=== PATIENT | female | born 1940 | race Caucasian/White ===

== ENCOUNTER 2017-09-25 17:44 | Emergency (ER) | payer MEDICARE ==
[2017-09-25] MEDS ORDERED: NORMAL SALINE 1000 ML 1,000 ML IV ONE (18:15)
--- NOTE | 2017-09-25 18:18 | ER Document Report ---
ED Medical Screen (RME) - General Chief Complaint: High blood sugar, out of insulin Stated Complaint: BLOOD SUGAR ISSUES Time Seen by Provider: 09/25/17 18:15 Mode of Arrival: Wheelchair Information source: Patient TRAVEL OUTSIDE OF THE [place] IN LAST 30 DAYS: No - HPI Patient complains to provider of: elevated BS Onset: This afternoon - pt is an IDDM who ran out of her insulin earlier today but states her BS continues to rise. Her FSBS here is 267 - Related Data Allergies/Adverse Reactions: iodine [Iodine] Allergy (Verified 07/12/16 23:37) nortriptyline [Nortriptyline] Allergy (Verified 07/12/16 23:37) Penicillins Allergy (Verified 07/12/16 23:37) Past Medical History - Social History Chew tobacco use (# tins/day): No Frequency of alcohol use: None Drug Abuse: None - Past Medical History Cardiac Medical History: Reports: Hx Congestive Heart Failure, Hx Coronary Artery Disease, Hx Heart Attack, Hx Hypercholesterolemia, Hx Hypertension - HTN , pulmonary HTN Pulmonary Medical History: Reports: Hx COPD Denies: Hx Tuberculosis Endocrine Medical History: Reports: Hx Diabetes Mellitus Type 2 Renal/ Medical History: Denies: Hx Peritoneal Dialysis GI Medical History: Reports: Hx Hiatal Hernia Psychiatric Medical History: Denies: Hx Depression Past Surgical History: Reports: Hx Appendectomy, Hx Cardiac Surgery - bypass, Hx Cholecystectomy, Hx Coronary Artery Bypass Graft, Hx Tonsillectomy Physical Exam - Vital signs Vitals: Temp Pulse BP Pulse Ox 98.6 F 87 138/70 H 96 09/25/17 18:03 09/25/17 18:03 09/25/17 18:03 09/25/17 18:03 Course - Vital Signs Vital signs: Temp Pulse Resp BP Pulse Ox 98.6 F 87 138/70 H 96 09/25/17 18:03 09/25/17 18:03 09/25/17 18:03 09/25/17 18:03
[2017-09-25 18:39] LABS: ABSOLUTE BASOPHILS # (AUTO) 0.1 10^3/uL (0.0-0.2); ABSOLUTE EOSINOPHILS # (AUTO) 0.2 10^3/uL (0.0-0.6); ABSOLUTE LYMPHOCYTES (AUTO) 1.3 10^3/uL (0.5-4.7); ABSOLUTE MONOCYTES (AUTO) 0.5 10^3/uL (0.1-1.4); ABSOLUTE NEUT (AUTO) 8.7 10^3/uL (1.7-8.2); BASOPHILS % (AUTO) 0.6 % (0-2); EOSINOPHILS % (AUTO) 2.1 % (0-6); HEMATOCRIT 30.9 % (36.0-47.0); HEMOGLOBIN 9.9 g/dL (12.0-15.5); LYMPHOCYTES % (AUTO) 11.6 % (13-45); MEAN CORPUSCULAR HEMOGLOBIN 26.7 pg (27.0-33.4); MEAN CORPUSCULAR VOLUME 84 fl (80-97); MONOCYTES % (AUTO) 4.8 % (3-13); PLATELET COUNT 270 10^3/uL (150-450); RED CELL DISTRIBUTION WIDTH 15.6 % (11.5-14.0); SEGMENTED NEUTROPHILS % (AUTO) 80.9 % (42-78); TOTAL CELLS COUNTED % (AUTO) 100 %; WHITE BLOOD COUNT 10.8 10^3/uL (4.0-10.5)
[2017-09-25 18:56] LABS: ALANINE AMINOTRANSFERASE 28 U/L (9-52); ALKALINE PHOSPHATASE 150 U/L (38-126); ANION GAP 9 (5-19); ASPARTATE AMINO TRANSFERASE 33 U/L (14-36); BILIRUBIN,DIRECT 0.3 mg/dL (0.0-0.4); BILIRUBIN,TOTAL 0.5 mg/dL (0.2-1.3); BLOOD UREA NITROGEN 20 mg/dL (7-20); CALCIUM 9.5 mg/dL (8.4-10.2); CARBON DIOXIDE 37 mmol/L (22-30); CHLORIDE 94 mmol/L (98-107); GLUCOSE 254 mg/dL (75-110); POTASSIUM 4.8 mmol/L (3.6-5.0); SODIUM 139.9 mmol/L (137-145); TOTAL PROTEIN 7.3 g/dL (6.3-8.2)
[2017-09-25 20:41] VITALS: BP 147/71
--- NOTE | 2017-11-19 07:09 | ER Document Report ---
ED Blood Sugar Problem - General Chief Complaint: High blood sugar, out of insulin Stated Complaint: BLOOD SUGAR ISSUES Time Seen by Provider: 09/25/17 18:15 Mode of Arrival: Wheelchair Information source: Patient TRAVEL OUTSIDE OF THE [place] IN LAST 30 DAYS: No - HPI Patient complains to provider of: elevated Blood sugar Onset: This morning - pt states she ran out of her insulin and has had elevated Blood sugars - Related Data Allergies/Adverse Reactions: iodine [Iodine] Allergy (Verified 07/12/16 23:37) nortriptyline [Nortriptyline] Allergy (Verified 07/12/16 23:37) Penicillins Allergy (Verified 07/12/16 23:37) Past Medical History - General Information source: Patient - Social History Smoking Status: Never Smoker Chew tobacco use (# tins/day): No Frequency of alcohol use: None Drug Abuse: None Family History: Hypertension Patient has suicidal ideation: No Patient has homicidal ideation: No - Past Medical History Cardiac Medical History: Reports: Hx Congestive Heart Failure, Hx Coronary Artery Disease, Hx Heart Attack, Hx Hypercholesterolemia, Hx Hypertension - HTN , pulmonary HTN Pulmonary Medical History: Reports: Hx COPD Denies: Hx Tuberculosis Endocrine Medical History: Reports: Hx Diabetes Mellitus Type 2 Renal/ Medical History: Denies: Hx Peritoneal Dialysis GI Medical History: Reports: Hx Hiatal Hernia Psychiatric Medical History: Denies: Hx Depression Past Surgical History: Reports: Hx Appendectomy, Hx Cardiac Surgery - bypass, Hx Cholecystectomy, Hx Coronary Artery Bypass Graft, Hx Tonsillectomy - Immunizations Hx Pneumococcal Vaccination: 06/24/14 Review of Systems - Review of Systems Constitutional: No symptoms reported EENT: No symptoms reported Cardiovascular: No symptoms reported Respiratory: No symptoms reported Gastrointestinal: No symptoms reported Musculoskeletal: No symptoms reported -: Yes All other systems reviewed and negative Physical Exam - Vital signs Vitals: Temp Pulse BP Pulse Ox 98.6 F 87 138/70 H 96 09/25/17 18:03 09/25/17 18:03 09/25/17 18:03 09/25/17 18:03 - General General appearance: Appears well In distress: None - Respiratory Respiratory status: No respiratory distress Breath sounds: Normal - Cardiovascular Rhythm: Regular Heart sounds: Normal auscultation - Abdominal Inspection: Normal Bowel sounds: Normal Tenderness: Nontender Course - Re-evaluation Re-evalutation: 11/19/17 07:08 pt. felt better at time of d/c -- FSBS 200 -- expressed desire to go home - Vital Signs Vital signs: Temp Pulse Resp BP Pulse Ox 100.0 F 87 16 147/71 H 98 09/25/17 20:35 09/25/17 20:35 09/25/17 20:35 09/25/17 20:35 09/25/17 20:35 - Laboratory Result Diagrams: 09/25/17 18:30 09/25/17 18:30 Laboratory results interpreted by me: 09/25/17 09/25/17 09/25/17 18:17 18:30 18:30 WBC 10.8 H RBC 3.70 L Hgb 9.9 L Hct 30.9 L MCH 26.7 L RDW 15.6 H Seg Neutrophils % 80.9 H Lymphocytes % 11.6 L Absolute Neutrophils 8.7 H Chloride 94 L Carbon Dioxide 37 H Glucose 254 H POC Glucose 267 H Alkaline Phosphatase 150 H Discharge - Discharge Clinical Impression: Hyperglycemia Condition: Stable Disposition: HOME, SELF-CARE Additional Instructions: rest, take meds as prescribed, return if worse Referrals: SHAR ALAMO MD [ACTIVE STAFF] - Follow up as needed
== END 2017-09-25 20:38 | disposition home or self-care (01) ==
LOC: ER 17:44
DX: E11.65 Type 2 diabetes mellitus with hyperglycemia (principal); Z79.4 Long term (current) use of insulin; Z88.0 Allergy status to penicillin; I50.9 Heart failure, unspecified; I25.10 Atherosclerotic heart disease of native coronary artery without angina pectoris; I25.2 Old myocardial infarction; E78.00 Pure hypercholesterolemia, unspecified; I11.0 Hypertensive heart disease with heart failure; J44.9 Chronic obstructive pulmonary disease, unspecified; Z95.1 Presence of aortocoronary bypass graft; Z90.49 Acquired absence of other specified parts of digestive tract
CPT/HCPCS: 36415; 80053; 82962; 85025; 99283

== ENCOUNTER 2018-03-24 15:48 | Emergency (ER) | payer MEDICARE ==
--- NOTE | 2018-03-24 16:16 | ER Document Report ---
ED Medical Screen (RME) - General Chief Complaint: Pedal Edema Stated Complaint: LEG SWELLING Time Seen by Provider: 03/24/18 16:15 Mode of Arrival: Wheelchair Information source: Patient, Relative Notes: 77-year-old female history of congestive heart failure who is on 2 L of nasal cannula at all times at home presents with complaints of shortness of breath and lower extremity edema patient is on 40 mg of Lasix daily I have greeted and performed a rapid initial assessment of this patient. A comprehensive ED assessment and evaluation of the patient, analysis of test results and completion of the medical decision making process will be conducted by additional ED providers. PHYSICAL EXAMINATION: GENERAL: Well-appearing, well-nourished and in no acute distress. Patient satting 90% on room air will place her on oxygen HEAD: Atraumatic, normocephalic. EYES: Pupils equal round extraocular movements intact, conjunctiva are normal. ENT: Nares patent NECK: Normal range of motion LUNGS: No respiratory distress Musculoskeletal: +2 pitting edema bilateral lower extremities NEUROLOGICAL: Normal speech, normal gait. PSYCH: Normal mood, normal affect. SKIN: Warm, Dry, normal turgor, no rashes or lesions noted. TRAVEL OUTSIDE OF THE [place] IN LAST 30 DAYS: No COUNTRY TRAVELED TO/FROM: [facility] - Related Data Allergies/Adverse Reactions: iodine [Iodine] Allergy (Verified 03/24/18 15:53) nortriptyline [Nortriptyline] Allergy (Verified 03/24/18 15:53) Penicillins Allergy (Verified 03/24/18 15:53) Past Medical History - Past Medical History Cardiac Medical History: Reports: Hx Congestive Heart Failure, Hx Coronary Artery Disease, Hx Heart Attack, Hx Hypercholesterolemia, Hx Hypertension - HTN , pulmonary HTN Pulmonary Medical History: Reports: Hx COPD Denies: Hx Tuberculosis Endocrine Medical History: Reports: Hx Diabetes Mellitus Type 2 Renal/ Medical History: Denies: Hx Peritoneal Dialysis GI Medical History: Reports: Hx Hiatal Hernia Psychiatric Medical History: Denies: Hx Depression Past Surgical History: Reports: Hx Appendectomy, Hx Cardiac Surgery - bypass, Hx Cholecystectomy, Hx Coronary Artery Bypass Graft, Hx Tonsillectomy Physical Exam - Vital signs Vitals: Temp Pulse Resp BP Pulse Ox 98.8 F 92 20 153/66 H 90 L 03/24/18 16:01 03/24/18 16:01 03/24/18 16:01 03/24/18 16:01 03/24/18 16:01 Course - Vital Signs Vital signs: Temp Pulse Resp BP Pulse Ox 98.8 F 92 20 153/66 H 90 L 03/24/18 16:01 03/24/18 16:01 03/24/18 16:01 03/24/18 16:01 03/24/18 16:01 Doctor's Discharge - Discharge Referrals: HIMA LIU NP [Primary Care Provider] - Follow up as needed
[2018-03-24] MEDS ORDERED: HYDROCODONE/ACETAMINOPHEN 5-325 MG TABLET PO ONE (17:09)
--- NOTE | 2018-03-24 17:24 | RADIOLOGY REPORT (SQ) ---
EXAM DESCRIPTION: CHEST SINGLE VIEW COMPLETED DATE/TIME: 03/24/2018 5:11 pm REASON FOR STUDY: dyspnea COMPARISON: 06/24/2016 EXAM PARAMETERS: NUMBER OF VIEWS: One view. TECHNIQUE: Single frontal radiographic view of the chest acquired. RADIATION DOSE: NA LIMITATIONS: None. FINDINGS: LUNGS AND PLEURA: No opacities, masses or pneumothorax. No pleural effusion. MEDIASTINUM AND HILAR STRUCTURES: No masses. Contour normal. HEART AND VASCULAR STRUCTURES: Heart normal in size. Normal vasculature. BONES: No acute findings. HARDWARE: Sternotomy wires. OTHER: No other significant finding. IMPRESSION: NO ACUTE RADIOGRAPHIC FINDING IN THE CHEST. TECHNICAL DOCUMENTATION: JOB ID: [id number] [employer]- All Rights Reserved Reading location - IP/workstation name: [email or web address]
--- NOTE | 2018-03-24 17:37 | ER Document Report ---
ED General - General Chief Complaint: Pedal Edema Stated Complaint: LEG SWELLING Time Seen by Provider: 03/24/18 16:15 Mode of Arrival: Wheelchair TRAVEL OUTSIDE OF THE [place] IN LAST 30 DAYS: No COUNTRY TRAVELED TO/FROM: [facility] Notes: Patient is a 77-year-old female history of COPD, CAD, CHF, renal failure, atrial fibrillation and is oxygen dependent at home 2 L consistently presents the emergency department with report of increasing lower extremity edema for the last 3-4 days. The patient states she has dyspnea on exertion which is unchanged. The patient denies any chest pain or fever or abdominal pain. She describes the leg swelling has been chronic but seems worse for the low past 3 days. She states she has had inadequate pain relief related to tramadol, but [employer] has worked for her in the past when she was in [place]. Patient reports her only recent other medication change was at she was increased on her Lyrica dosage. She has been on Eliquis for the last 5 months related to the atrial fibrillation. She also takes aspirin and Lasix 40 mg daily. Patient is extremely inactive and usually states she is unable to move around related to her chronic arthralgias. The patient gets around minimally with a walker at home and does not elevate her feet or move her legs much. - Related Data Allergies/Adverse Reactions: iodine [Iodine] Allergy (Verified 03/24/18 15:53) nortriptyline [Nortriptyline] Allergy (Verified 03/24/18 15:53) Penicillins Allergy (Verified 03/24/18 15:53) Past Medical History - General Information source: Patient, Relative - Social History Smoking Status: Former Smoker Frequency of alcohol use: None Drug Abuse: None Lives with: Family, Spouse/Significant other Family History: Hypertension Patient has suicidal ideation: No Patient has homicidal ideation: No - Past Medical History Cardiac Medical History: Reports: Hx Congestive Heart Failure, Hx Coronary Artery Disease, Hx Heart Attack, Hx Hypercholesterolemia, Hx Hypertension - HTN , pulmonary HTN Pulmonary Medical History: Reports: Hx COPD Denies: Hx Tuberculosis Endocrine Medical History: Reports: Hx Diabetes Mellitus Type 2 Renal/ Medical History: Denies: Hx Peritoneal Dialysis GI Medical History: Reports: Hx Hiatal Hernia Psychiatric Medical History: Denies: Hx Depression Past Surgical History: Reports: Hx Appendectomy, Hx Cardiac Surgery - bypass, Hx Cholecystectomy, Hx Coronary Artery Bypass Graft, Hx Tonsillectomy - Immunizations Hx Pneumococcal Vaccination: 06/24/14 Review of Systems - Review of Systems Notes: REVIEW OF SYSTEMS: CONSTITUTIONAL : Denies fever, chills, or sweats. Denies recent illness. EENT: Denies eye, ear, throat, or mouth pain or symptoms. Denies nasal or sinus congestion or discharge. Denies throat, tongue, or mouth swelling or difficulty swallowing. CARDIOVASCULAR: Denies chest pain. Denies palpitations or racing or irregular heart beat. RESPIRATORY: Denies cough, cold, or chest congestion. Denies wheezing. Reports chronic dyspnea with dyspnea on exertion. Patient's had orthopnea she describes for several years which is unchanged. GASTROINTESTINAL: Denies abdominal pain or distention. Denies nausea, vomiting , or diarrhea. Denies blood in vomitus, stools, or per rectum. Denies black, tarry stools. Denies constipation. GENITOURINARY: Denies difficulty urinating, painful urination, burning, frequency, blood in urine, or discharge. FEMALE GENITOURINARY: Denies vaginal bleeding, heavy or abnormal periods, irregular periods. Denies vaginal discharge or odor. MUSCULOSKELETAL: Denies back or neck pain or stiffness. Denies joint pain or swelling. SKIN: Denies rash, lesions or sores. HEMATOLOGIC : Denies easy bruising or bleeding. LYMPHATIC: Denies swollen, enlarged glands. NEUROLOGICAL: Denies confusion or altered mental status. Denies passing out or loss of consciousness. Denies dizziness or lightheadedness. Denies headache. Denies weakness or paralysis or loss of use of either side. Denies problems with gait or speech. Denies sensory loss, numbness, or tingling. Denies seizures. PSYCHIATRIC: Denies anxiety or stress. Denies depression, suicidal ideation, or homicidal ideation. ALL OTHER SYSTEMS REVIEWED AND NEGATIVE. Dictation was performed using [employer] voice recognition software Physical Exam - Vital signs Vitals: Temp Pulse Resp BP Pulse Ox 98.8 F 92 20 153/66 H 90 L 03/24/18 16:01 03/24/18 16:03/24/18 16:01 03/24/18 16:03/24/18 16:01 - Notes Notes: PHYSICAL EXAMINATION: GENERAL: Well-appearing, well-nourished and in no acute distress. HEAD: Atraumatic, normocephalic. EYES: Pupils equal round and reactive to light, extraocular movements intact, conjunctiva are normal. ENT: Nares patent, oropharynx clear without exudates. Moist mucous membranes. NECK: Normal range of motion, supple without lymphadenopathy. No JVD LUNGS: Breath sounds clear to auscultation bilaterally and equal. No wheezes rales or rhonchi. HEART: Regular rate and rhythm with 1/6 HELADIO over apex. ABDOMEN: Soft, nontender, nondistended abdomen. No guarding, no rebound. No masses appreciated. Obese. Female : deferred Musculoskeletal: Normal range of motion. No cyanosis. Patient has diffuse arthralgias which are unchanged by her report. Patient has 2+ bilateral lower extremity edema. Negative Homans. No palpable cord. She has a surgical scar from vascular surgery right lower extremity and there may be slightly worse swelling on the right but no obvious evidence for cellulitis. Good distal pulses. No proximal erythema or adenopathy. NEUROLOGICAL: Cranial nerves grossly intact. Normal speech, normal gait. Normal sensory, motor exams PSYCH: Normal mood, normal affect. SKIN: Warm, Dry, normal turgor, no rashes or lesions noted. Course - Re-evaluation Re-evalutation: 03/24/18 20:38 Discussion was undertaken with the patient and her related to the need for regular exercise and exertion and leg elevation. The patient has support stockings at home, but she does not use them regularly. The patient was mainly focusing upon having something stronger for her chronic arthralgia pain. I stated she needed to follow-up with her regular practitioner for any long-term prescription for this, and I discussed at length with the patient that taking narcotics or other analgesias can hasten dementia and other side effects. Patient's MCV is somewhat low, and we will add in low-dose iron therapy. The patient's hemoglobin of 9 is similar to 7 months ago where it was 9.9. No suggestion for significant blood loss. No evidence for CHF or renal insufficiency. Patient has long-standing oxygen dependent COPD, and there is no evidence for hypoxia beyond her baseline. Patient is anticoagulated currently with Eliquis, so there is no concern for PE or DVT at the current time. 03/24/18 20:39 - Vital Signs Vital signs: Temp Pulse Resp BP Pulse Ox 98.8 F 92 20 153/66 H 90 L 03/24/18 16:01 03/24/18 16:01 03/24/18 16:01 03/24/18 16:01 03/24/18 16:01 - Laboratory Result Diagrams: 03/24/18 18:14 03/24/18 18:14 Laboratory results interpreted by me: 03/24/18 03/24/18 03/24/18 16:11 18:14 18:14 Hgb 9.0 L Hct 29.1 L MCV 75 L MCH 23.1 L MCHC 31.1 L RDW 17.6 H Chloride 93 L Carbon Dioxide 37 H BUN 29 H Glucose 311 H Alkaline Phosphatase 172 H Urine Glucose (UA) >=500 H - EKG Interpretation by Or EKG shows normal: Sinus rhythm Additional EKG results interpreted by me: 03/24/18 17:37 EKG as interpreted by wy showed normal sinus rhythm heart rate of 84. There is no gross evidence for acute RI or ischemia. There is first-degree AV block. There is right bundle branch block. There is no significant change from previous EKG reviewed from 06/22/16 Discharge - Discharge Clinical Impression: Anemia Qualifiers: Anemia type: unspecified type Qualified Code(s): D64.9 - Anemia, unspecified Arthralgia Qualifiers: Joint pain location: unspecified Qualified Code(s): M25.50 - Pain in unspecified joint Edema Qualifiers: Edema type: unspecified Qualified Code(s): R60.9 - Edema, unspecified Condition: Stable Disposition: HOME, SELF-CARE Instructions: Arthralgia ([facility]), Dependent Edema ([facility]), Anemia ([facility]) Additional Instructions: Elevate your legs as needed for swelling. Use support hose during the day to help limit swelling. We will start you on low-dose iron for anemia. Follow-up with your regular practitioner regarding iron studies and further evaluation. Prescriptions: Hydrocodone/Acetaminophen [[place] 5-325 Tablet] 1 each PO Q4HP PRN #20 tablet PRN Reason: Ferrous Sulfate [Feosol] 325 mg PO DAILY #60 tablet Referrals: HIMA LIU NP [Primary Care Provider] - Follow up as needed
[2018-03-24 18:33] LABS: ABSOLUTE BASOPHILS # (AUTO) 0.1 10^3/uL (0.0-0.2); ABSOLUTE EOSINOPHILS # (AUTO) 0.3 10^3/uL (0.0-0.6); ABSOLUTE LYMPHOCYTES (AUTO) 1.5 10^3/uL (0.5-4.7); ABSOLUTE MONOCYTES (AUTO) 0.6 10^3/uL (0.1-1.4); ABSOLUTE NEUT (AUTO) 6.8 10^3/uL (1.7-8.2); EOSINOPHILS % (AUTO) 3.2 % (0-6); HEMATOCRIT 29.1 % (36.0-47.0); LYMPHOCYTES % (AUTO) 16.3 % (13-45); MEAN CORPUSCULAR HEMOGLOBIN 23.1 pg (27.0-33.4); MEAN CORPUSCULAR HGB CONC 31.1 g/dL (32.0-36.0); MEAN CORPUSCULAR VOLUME 75 fl (80-97); PLATELET COUNT 239 10^3/uL (150-450); RED CELL DISTRIBUTION WIDTH 17.6 % (11.5-14.0); SEGMENTED NEUTROPHILS % (AUTO) 73.5 % (42-78); TOTAL CELLS COUNTED % (AUTO) 100 %; WHITE BLOOD COUNT 9.3 10^3/uL (4.0-10.5)
[2018-03-24 18:59] LABS: TROPONIN I 0.016 ng/mL
[2018-03-24 19:10] LABS: ALANINE AMINOTRANSFERASE 25 U/L (9-52); ALBUMIN 3.8 g/dL (3.5-5.0); ALKALINE PHOSPHATASE 172 U/L (38-126); ANION GAP 13 (5-19); ASPARTATE AMINO TRANSFERASE 35 U/L (14-36); BILIRUBIN,DIRECT 0.2 mg/dL (0.0-0.4); BILIRUBIN,TOTAL 0.2 mg/dL (0.2-1.3); BLOOD UREA NITROGEN 29 mg/dL (7-20); CALCIUM 9.6 mg/dL (8.4-10.2); CARBON DIOXIDE 37 mmol/L (22-30); CHLORIDE 93 mmol/L (98-107); CREATINE KINASE 35 U/L (30-135); GLUCOSE 311 mg/dL (75-110); POTASSIUM 4.9 mmol/L (3.6-5.0); TOTAL PROTEIN 7.6 g/dL (6.3-8.2)
[2018-03-24 19:31] LABS: APPEARANCE,URINE CLEAR; BILIRUBIN,URINE NEGATIVE (NEGATIVE); COLOR,URINE STRAW; GLUCOSE, URINE >=500 mg/dL (NEGATIVE); KETONES,URINE NEGATIVE (NEGATIVE); LEUKOCYTE ESTERASE,URINE NEGATIVE (NEGATIVE); NITRITE,URINE NEGATIVE (NEGATIVE); PROTEIN,URINE NEGATIVE (NEGATIVE); URINE SPECIFIC GRAVITY 1.007; UROBILINOGEN,URINE NEGATIVE mg/dL (<2.0)
--- NOTE | 2018-03-24 20:57 | EKG REPORT ---
SEVERITY:- ABNORMAL ECG - SINUS OR ECTOPIC ATRIAL RHYTHM FIRST DEGREE AV BLOCK RIGHT BUNDLE BRANCH BLOCK PROBABLE INFERIOR INFARCT, AGE INDETERMINATE BORDERLINE T WAVE ABNORMALITIES : Confirmed by: Kaley Jain 24-Mar-2018 20:56:40
[2018-03-24 21:15] VITALS: BP 139/58
== END 2018-03-24 21:15 | disposition home or self-care (01) ==
LOC: ER 15:48
DX: D64.9 Anemia, unspecified (principal); M25.50 Pain in unspecified joint; R60.9 Edema, unspecified; J44.9 Chronic obstructive pulmonary disease, unspecified; I25.10 Atherosclerotic heart disease of native coronary artery without angina pectoris; I50.9 Heart failure, unspecified; N19 Unspecified kidney failure; I48.91 Unspecified atrial fibrillation; Z99.81 Dependence on supplemental oxygen; R06.00 Dyspnea, unspecified; Z79.899 Other long term (current) drug therapy; Z79.01 Long term (current) use of anticoagulants; Z79.82 Long term (current) use of aspirin; Z87.891 Personal history of nicotine dependence; I25.2 Old myocardial infarction; I10 Essential (primary) hypertension; E11.9 Type 2 diabetes mellitus without complications
CPT/HCPCS: 93005; 99284; 36415; 87040; 82553; 82550; 85025; 80053; 81001; 84484; 83880; 71045; 93010; A9270

== ENCOUNTER 2018-03-26 23:18 | Emergency (ER) | payer MEDICARE ==
--- NOTE | 2018-03-26 23:48 | ER Document Report ---
ED General - General Chief Complaint: Altered Mental Status Stated Complaint: WEAKNESS Time Seen by Provider: 03/26/18 23:30 Notes: Patient is a 77 year female who presents to the ER with complaint of a fall. She says she was going to the bathroom and fell backwards did hit her head. She says she only has a mild headache. She has some back pain but says is chronic and unchanged from her baseline. She says she has must be seen a doctor about possibly get injections into her back. She does take Xarelto. She denies any chest pain. No shortness of breath. No fevers. She said that she has been lumbar more week and shaky since starting the new medication as prescribed when she was here 2 days ago. She was prescribed hydrocodone. Also noticed that the patient's previous chart says that she has been 2 L of oxygen. When she is sitting in bed her oxygen saturations anywhere from 86-92% on room air. I asked her if she has been wearing her oxygen she says that the oxygen nasal cannula sometimes itches her nose and therefore she does not wear it often. She denies any fevers. No vomiting. Some mentions that she has been having some urinary frequency which she feels like she frequently has to use the bathroom but is unable to. 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 TRAVEL OUTSIDE OF THE [place] IN LAST 30 DAYS: No COUNTRY TRAVELED TO/FROM: [facility] - Related Data Allergies/Adverse Reactions: iodine [Iodine] Allergy (Verified 03/24/18 15:53) nortriptyline [Nortriptyline] Allergy (Verified 03/24/18 15:53) Penicillins Allergy (Verified 03/24/18 15:53) Past Medical History - Social History Smoking Status: Unknown if Ever Smoked Frequency of alcohol use: None Drug Abuse: None Family History: Hypertension - Past Medical History Cardiac Medical History: Reports: Hx Congestive Heart Failure, Hx Coronary Artery Disease, Hx Heart Attack, Hx Hypercholesterolemia, Hx Hypertension - HTN , pulmonary HTN Pulmonary Medical History: Reports: Hx COPD Denies: Hx Tuberculosis Endocrine Medical History: Reports: Hx Diabetes Mellitus Type 2 Renal/ Medical History: Denies: Hx Peritoneal Dialysis GI Medical History: Reports: Hx Hiatal Hernia Psychiatric Medical History: Denies: Hx Depression Past Surgical History: Reports: Hx Appendectomy, Hx Cardiac Surgery - bypass, Hx Cholecystectomy, Hx Coronary Artery Bypass Graft, Hx Tonsillectomy - Immunizations Hx Pneumococcal Vaccination: 06/24/14 Review of Systems - Review of Systems Notes: My Normal Review Basic REVIEW OF SYSTEMS: CONSTITUTIONAL : Denies fever, chills, or sweats. Denies recent illness. Has felt a little bit more weak than usual. EENT: Denies eye, ear, throat, or mouth pain or symptoms. Denies nasal or sinus congestion. CARDIOVASCULAR: Denies chest pain. RESPIRATORY: Denies cough, cold, or chest congestion. Denies shortness of breath, difficulty breathing, or wheezing. GASTROINTESTINAL: Denies abdominal pain. Denies nausea, vomiting, or diarrhea. GENITOURINARY: Urinary frequency FEMALE GENITOURINARY: Denies vaginal bleeding, abnormal or irregular periods. MUSCULOSKELETAL: Denies neck or back pain or joint pain or swelling. SKIN: Denies rash or skin lesions. HEMATOLOGIC : On Eliquis. NEUROLOGICAL: Denies altered mental status or loss of consciousness. Mild headache. Denies weakness or paralysis or loss of use of either side. Denies problems with gait or speech. Denies sensory or motor loss. ALL OTHER SYSTEMS REVIEWED AND NEGATIVE. Physical Exam - Vital signs Vitals: Temp Pulse Resp BP Pulse Ox 98.4 F 88 17 130/100 H 96 03/26/18 23:30 03/26/18 23:30 03/26/18 23:30 03/26/18 23:30 03/26/18 23:30 - Notes Notes: General Appearance: Well nourished, alert, cooperative, no acute distress, no obvious discomfort. Well-appearing. Vitals: reviewed, See vital signs table. Head: Some tenderness to palpation of the occipital portion of the head. No obvious hematoma or swelling. Eyes: PERRL, EOMI, Conjuctiva clear Mouth: No decreasd moisture Throat: No tonsillar inflammation, No airway obstruction, No lymphadenopathy Neck: Supple, no neck tenderness, Lungs: No wheezing, No rales, No rhonci, No accessory muscle use, good air exchange bilaterally. Heart: Normal rate, Regular rythm, No murmur, no rub Abdomen: Normal BS, soft, No rigidity, No abdominal tenderness, No guarding, no rebound, no abdominal masses, no organomegaly Rectal: Brown stool without gross blood. Back: Some pain to palpation over thoracic spine which patient says is chronic and unchanged from her baseline. No step-offs or deformities. No step-offs or deformities of lumbar spine. No pain to palpation of lumbar spine. Extremities: , good pulses in all extremities, no swelling or tenderness in the extremities, 1+ bilateral lower extremity edema. Skin: warm, dry, appropriate color, candidal rash underneath both breasts. Neuro: speech clear, oriented x 3, normal affect, responds appropriately to questions. He understood 2 through 12 are intact. Patient moves all extremities without difficulty. Distal sensation intact. Course - Re-evaluation Re-evalutation: 03/27/18 05:13 I suspect the patient's weakness is multifactorial. She is felt weaker since starting the Rhodell. I will have her stop this. Also she admitted to me that she does not wear her oxygen very often and when at rest on room air she does frequently become hypoxic and therefore I informed her that it is extremely important to check she wears her oxygen. She had a chest x-ray just 2 days ago she has not had any fevers or leukocytosis and therefore I do not see a need to repeat chest x-ray. I did scan her head but she did fall on her head and does take a blood thinner. CT scan of her head was normal. Patient is actually for the most part upbeat and well appearing. She did have a slight decrease in hemoglobin from last time she was here. This could be related to her blood draws. I still went ahead and obtain a stool guaiac which was negative. Her urine did not show any evidence of blood. She has no evidence of bleeding on exam at this time. Patient does not appear to be very compliant with her care. Patient's helps care for her. I informed her that she needs to be compliant with all her medications. She does have significant dental type rash in either breast. She actually is prescribed a cream for this but she says that she just does not take it sometimes even though she admits that it works well when she does take it. Informed her that she should take all her medications as prescribed except for the Rhodell which she should stop taking. Informed her that she really does wear oxygen. Encouraged her follow-up closely with her primary care doctor for reevaluation and to have her hemoglobin rechecked this week. Patient to return to ER if she has fevers or feels worse in any way. Patient agrees with plan and will be discharged home. Dictation of this chart was performed using voice recognition software; therefore, there may be some unintended grammatical errors. - Vital Signs Vital signs: Temp Pulse Resp BP Pulse Ox 98.4 F 88 18 111/48 L 97 03/26/18 23:30 03/26/18 23:30 03/27/18 04:01 03/27/18 04:01 03/27/18 04:01 - Laboratory Result Diagrams: 03/27/18 01:48 03/27/18 01:48 Laboratory results interpreted by me: 03/27/18 03/27/18 03/27/18 01:14 01:48 01:48 RBC 3.57 L Hgb 8.3 L Hct 26.7 L MCV 75 L MCH 23.1 L MCHC 30.9 L RDW 17.5 H Carbon Dioxide 37 H BUN 45 H Est GFR ( Amer) 55 L Est GFR (Non-Af Amer) 45 L Glucose 249 H Urine Glucose (UA) >=500 H - EKG Interpretation by Me Additional EKG results interpreted by me: 03/27/18 00:26 EKG is reviewed and interpreted by me. EKG shows what appears to be sinus rhythm with occasional ectopic beat or artifact. Rate is approximately [address] segment elevation or depression. No concerning T-wave inversions. DE interval appears to be slightly prolonged. QRS duration QTc intervals are within normal range. Old EKG for comparison is from March 24, 2018. Discharge - Discharge Clinical Impression: Generalized weakness Anemia Qualifiers: Anemia type: unspecified type Qualified Code(s): D64.9 - Anemia, unspecified Condition: Good Disposition: HOME, SELF-CARE Additional Instructions: Please wear your oxygen at all times. Please start using your cream that you were prescribed for under your breast. please stop taking the pain medicine ( Rhodell) that you were prescribed here 2 days ago. Follow up with your doctor on for reevaluation and recheck of your hemoglobin. Return to the ER if you have fevers or are feeling worse. Please do not attempt to walk without your walker. Referrals: HIMA LIU NP [Primary Care Provider] - 03/30/18
[2018-03-27] MEDS ORDERED: INSULIN REG, HUMAN 100 UNIT/ML 3 ML VIAL (PYX) SUBCUT ONE (00:17)
--- NOTE | 2018-03-27 01:16 | RADIOLOGY REPORT (SQ) ---
EXAM DESCRIPTION: CT HEAD WITHOUT IV CONTRAST COMPLETED DATE/TME: 03/26/2018 23:43 CLINICAL HISTORY: 77 years, Female, AMS, weakness, fall COMPARISON: 06/20/2016 TECHNIQUE: 111 Images stored on PACS. All CT scanners at this facility use dose modulation, iterative reconstruction, and/or weight based dosing when appropriate to reduce radiation dose to as low as reasonably achievable (ALARA). [facility]: Dose Right [facility]: CareDose [facility]: Dose Right [facility]: Teradose 4D [facility]: [employer] LIMITATIONS: None. FINDINGS: Ventricles and sulci are prominent consistent with atrophy. There is periventricular white matter disease and microvascular ischemic change similar to the previous. There is no evidence of midline shift or mass effect. No evidence of acute intracranial hemorrhage. Paranasal sinuses are free from significant mucosal thickening or fluid. No calvarial fracture. IMPRESSION: Atrophy with periventricular white matter disease and microvascular ischemic changes No evidence of acute process TECHNICAL DOCUMENTATION: Quality ID # [id number]: Final reports with documentation of one or more dose reduction techniques (e.g., Automated exposure control, adjustment of the mA and/or kV according to patient size, use of iterative reconstruction technique) 2010 [email or web address]- All Rights Reserved
[2018-03-27 01:29] LABS: APPEARANCE,URINE CLEAR; BILIRUBIN,URINE NEGATIVE (NEGATIVE); COLOR,URINE YELLOW; GLUCOSE, URINE >=500 mg/dL (NEGATIVE); KETONES,URINE NEGATIVE (NEGATIVE); LEUKOCYTE ESTERASE,URINE NEGATIVE (NEGATIVE); NITRITE,URINE NEGATIVE (NEGATIVE); PROTEIN,URINE NEGATIVE (NEGATIVE); URINE SPECIFIC GRAVITY 1.014; UROBILINOGEN,URINE NEGATIVE mg/dL (<2.0)
[2018-03-27 01:57] LABS: ABSOLUTE BASOPHILS # (AUTO) 0.1 10^3/uL (0.0-0.2); ABSOLUTE EOSINOPHILS # (AUTO) 0.3 10^3/uL (0.0-0.6); ABSOLUTE LYMPHOCYTES (AUTO) 1.7 10^3/uL (0.5-4.7); ABSOLUTE MONOCYTES (AUTO) 0.7 10^3/uL (0.1-1.4); ABSOLUTE NEUT (AUTO) 7.1 10^3/uL (1.7-8.2); BASOPHILS % (AUTO) 0.8 % (0-2); EOSINOPHILS % (AUTO) 3.2 % (0-6); HEMATOCRIT 26.7 % (36.0-47.0); HEMOGLOBIN 8.3 g/dL (12.0-15.5); LYMPHOCYTES % (AUTO) 17.3 % (13-45); MEAN CORPUSCULAR HEMOGLOBIN 23.1 pg (27.0-33.4); MEAN CORPUSCULAR HGB CONC 30.9 g/dL (32.0-36.0); MEAN CORPUSCULAR VOLUME 75 fl (80-97); PLATELET COUNT 212 10^3/uL (150-450); RED BLOOD COUNT 3.57 10^6/uL (3.72-5.28); RED CELL DISTRIBUTION WIDTH 17.5 % (11.5-14.0); SEGMENTED NEUTROPHILS % (AUTO) 71.7 % (42-78); TOTAL CELLS COUNTED % (AUTO) 100 %; WHITE BLOOD COUNT 9.9 10^3/uL (4.0-10.5)
[2018-03-27 02:21] LABS: ANION GAP 7 (5-19); BLOOD UREA NITROGEN 45 mg/dL (7-20); CALCIUM 8.8 mg/dL (8.4-10.2); CARBON DIOXIDE 37 mmol/L (22-30); CHLORIDE 99 mmol/L (98-107); GLUCOSE 249 mg/dL (75-110); SODIUM 143.2 mmol/L (137-145)
[2018-03-27 06:10] VITALS: BP 105/82
--- NOTE | 2018-03-27 07:25 | EKG REPORT ---
SEVERITY:- ABNORMAL ECG - A-FLUTTER W/ PREDOM 3:1 AV BLOCK, A-RATE 234 BORDERLINE T ABNORMALITIES, INFERIOR LEADS : Confirmed by: Kelly Bhardwaj MD 27-Mar-2018 07:24:48
== END 2018-03-27 05:45 | disposition home or self-care (01) ==
LOC: ER 23:18
DX: D64.9 Anemia, unspecified (principal); R41.82 Altered mental status, unspecified; R53.1 Weakness; W18.30XA Fall on same level, unspecified, initial encounter; R21 Rash and other nonspecific skin eruption; I50.9 Heart failure, unspecified; I25.10 Atherosclerotic heart disease of native coronary artery without angina pectoris; E78.00 Pure hypercholesterolemia, unspecified; I11.0 Hypertensive heart disease with heart failure; E11.9 Type 2 diabetes mellitus without complications; Z79.02 Long term (current) use of antithrombotics/antiplatelets; Z88.0 Allergy status to penicillin; I25.2 Old myocardial infarction; Z98.84 Bariatric surgery status; Z95.1 Presence of aortocoronary bypass graft; Z90.49 Acquired absence of other specified parts of digestive tract
CPT/HCPCS: 93005; 99285; 36415; 85025; 82272; 80048; 81001; 70450; 93010; A9270; J1815

== ENCOUNTER 2018-04-02 13:55 | Inpatient (IN) | payer MEDICARE ==
--- NOTE | 2018-04-02 14:28 | ER Document Report ---
ED General - General Chief Complaint: Tremor Stated Complaint: BODY PAINS Time Seen by Provider: 04/02/18 14:22 Mode of Arrival: Medic Information source: Patient Notes: 77-year-old female brought into the emergency department by EMS for tremors. Patient states that she has a history of tremors. 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 Patient was never started on any medications. Patient states that they just resolved on their own. Patient states that the began again about 4 days ago. They have been intermittent in nature. No alleviating or exacerbating factors. Patient denies any other symptoms associated with the tremors. Patient states that she has had some difficulty ambulating and has fallen a few times trying to go to the bathroom. Patient denies any head injury or loss of consciousness. Patient denies any vision changes, speech changes, numbness, tingling, weakness. TRAVEL OUTSIDE OF THE [place] IN LAST 30 DAYS: No COUNTRY TRAVELED TO/FROM: [facility] - [facility] Onset: Last week Onset/Duration: Gradual Severity: None Pain Level: Denies Associated symptoms: None Exacerbated by: Denies Relieved by: Denies Similar symptoms previously: Yes Recently seen / treated by doctor: No - Related Data Allergies/Adverse Reactions: iodine [Iodine] Allergy (Verified 03/24/18 15:53) nortriptyline [Nortriptyline] Allergy (Verified 03/24/18 15:53) Penicillins Allergy (Verified 03/24/18 15:53) Past Medical History - Social History Smoking Status: Current Some Day Smoker Family History: Reviewed & Not Pertinent, Hypertension - Past Medical History Cardiac Medical History: Reports: Hx Congestive Heart Failure, Hx Coronary Artery Disease, Hx Heart Attack, Hx Hypercholesterolemia, Hx Hypertension - HTN , pulmonary HTN Pulmonary Medical History: Reports: Hx COPD Denies: Hx Tuberculosis Endocrine Medical History: Reports: Hx Diabetes Mellitus Type 2 Renal/ Medical History: Denies: Hx Peritoneal Dialysis GI Medical History: Reports: Hx Hiatal Hernia Psychiatric Medical History: Denies: Hx Depression Past Surgical History: Reports: Hx Appendectomy, Hx Cardiac Surgery - bypass, Hx Cholecystectomy, Hx Coronary Artery Bypass Graft, Hx Tonsillectomy - Immunizations Hx Pneumococcal Vaccination: 06/24/14 Review of Systems - Review of Systems Constitutional: No symptoms reported EENT: No symptoms reported Cardiovascular: No symptoms reported Respiratory: No symptoms reported Gastrointestinal: No symptoms reported Genitourinary: No symptoms reported Female Genitourinary: No symptoms reported Musculoskeletal: No symptoms reported Skin: No symptoms reported Neurological/Psychological: Tremor -: Yes All other systems reviewed and negative Physical Exam - Vital signs Vitals: Resp 20 04/02/18 14:23 Interpretation: Normal - Notes Notes: PHYSICAL EXAMINATION: GENERAL: Well-appearing, well-nourished and in no acute distress. HEAD: Atraumatic, normocephalic. EYES: Pupils equal round and reactive to light, extraocular movements intact, conjunctiva are normal. ENT: Nares patent, oropharynx clear without exudates. Moist mucous membranes. NECK: Normal range of motion, supple without lymphadenopathy LUNGS: Breath sounds clear to auscultation bilaterally and equal. No wheezes rales or rhonchi. HEART: Regular rate and rhythm without murmurs ABDOMEN: Soft, nontender, nondistended abdomen. No guarding, no rebound. No masses appreciated. Female : deferred Musculoskeletal: Normal range of motion, no pitting or edema. No cyanosis. NEUROLOGICAL: Cranial nerves grossly intact. Normal speech, normal gait. Normal sensory, motor exams. myoclonic jerking movements. PSYCH: Normal mood, normal affect. SKIN: Warm, Dry, normal turgor, no rashes or lesions noted. Course - Re-evaluation Re-evalutation: 04/02/18 19:[address] Bermeo. Patient has hyperkalemia and is tachycardic. He does not feel the patient needs admission. Would like repeat BMP and a fleets enema for constipation. Will call back with results. 04/02/18 21:[address] Bermeo. Patient's potassium is decreasing. She's still tachycardic. Only complaint is myalgias. He would like to see how the ativan affects the patient's tachycardia. Patient denies alcohol and illicit drug use. 04/02/18 22:42 Ativan given. Patient continues to have tachycardia. Continues to deny chest pain, shortness of breath, abdominal pain, nausea, vomiting. Only complaint is diffuse myalgias. Dr. Bermeo will admit patient. - Vital Signs Vital signs: Temp Pulse Resp BP Pulse Ox 98.6 F 98 19 174/78 H 91 L 04/02/18 17:00 04/02/18 17:00 04/02/18 21:04 04/02/18 21:04 04/02/18 21:04 - Laboratory Result Diagrams: 04/02/18 14:10 04/02/18 21:03 Laboratory results interpreted by me: 04/02/18 04/02/18 04/02/18 14:10 14:10 21:03 Hgb 9.1 L Hct 29.1 L MCV 76 L MCH 23.6 L MCHC 31.1 L RDW 18.1 H Seg Neutrophils % 80.3 H Lymphocytes % 12.1 L Sodium 145.3 H 145.2 H Potassium 5.8 H 5.1 H Carbon Dioxide 37 H BUN 46 H 34 H Est GFR (Non-Af Amer) 53 L Glucose 162 H 170 H Magnesium 2.4 H Alkaline Phosphatase 173 H - EKG Interpretation by Me EKG shows normal: Sinus rhythm Rate: Tachycardia - Ventricular rate 121, TX interval 121, castration 104, QTc 466, sinus tachycardia, no ischemic changes. Discharge - Discharge Clinical Impression: Tachycardia, Myoclonic jerking, Hyperkalemia Condition: Stable Disposition: ADMITTED OBSERVATION Admitting Provider: Hospitalist Unit Admitted: Telemetry Referrals: HIMA LIU NP [Primary Care Provider] - Follow up as needed
[2018-04-02 15:25] LABS: ABSOLUTE EOSINOPHILS # (AUTO) 0.2 10^3/uL (0.0-0.6); ABSOLUTE MONOCYTES (AUTO) 0.4 10^3/uL (0.1-1.4); BASOPHILS % (AUTO) 0.4 % (0-2); EOSINOPHILS % (AUTO) 2.7 % (0-6); HEMATOCRIT 29.1 % (36.0-47.0); HEMOGLOBIN 9.1 g/dL (12.0-15.5); LYMPHOCYTES % (AUTO) 12.1 % (13-45); MEAN CORPUSCULAR HEMOGLOBIN 23.6 pg (27.0-33.4); MEAN CORPUSCULAR HGB CONC 31.1 g/dL (32.0-36.0); MEAN CORPUSCULAR VOLUME 76 fl (80-97); MONOCYTES % (AUTO) 4.5 % (3-13); PLATELET COUNT 212 10^3/uL (150-450); RED BLOOD COUNT 3.85 10^6/uL (3.72-5.28); RED CELL DISTRIBUTION WIDTH 18.1 % (11.5-14.0); SEGMENTED NEUTROPHILS % (AUTO) 80.3 % (42-78); TOTAL CELLS COUNTED % (AUTO) 100 %; WHITE BLOOD COUNT 8.7 10^3/uL (4.0-10.5)
[2018-04-02 15:48] LABS: ALANINE AMINOTRANSFERASE 23 U/L (9-52); ALBUMIN 3.8 g/dL (3.5-5.0); ALKALINE PHOSPHATASE 173 U/L (38-126); ANION GAP 8 (5-19); ASPARTATE AMINO TRANSFERASE 33 U/L (14-36); BILIRUBIN,DIRECT 0.3 mg/dL (0.0-0.4); BILIRUBIN,TOTAL 0.3 mg/dL (0.2-1.3); BLOOD UREA NITROGEN 46 mg/dL (7-20); CALCIUM 9.6 mg/dL (8.4-10.2); CARBON DIOXIDE 37 mmol/L (22-30); CHLORIDE 100 mmol/L (98-107); GLUCOSE 162 mg/dL (75-110); POTASSIUM 5.8 mmol/L (3.6-5.0); SODIUM 145.3 mmol/L (137-145); TOTAL PROTEIN 7.4 g/dL (6.3-8.2)
[2018-04-02 15:49] LABS: ALCOHOL < 10 mg/dL (NONE DETECTED)
[2018-04-02] MEDS ORDERED: SODIUM POLYSTYRENE SULFONATE 15 GM/60 ML PO ONE (16:37)
[2018-04-02] MEDS ORDERED: NORMAL SALINE 1000 ML 1,000 ML IV ONE ×2 (16:37→19:43)
[2018-04-02] MEDS ORDERED: FUROSEMIDE INJ/PF 20 MG/2 ML SDV IV ONE (16:38)
[2018-04-02 17:09] LABS: URINE AMPHETAMINES SCREEN NEGATIVE; URINE BARBITURATES SCREEN NEGATIVE; URINE BENZODIAZEPINES SCREEN NEGATIVE; URINE COCAINE SCREEN NEGATIVE; URINE MARIJUANA (THC) SCREEN NEGATIVE; URINE METHADONE SCREEN NEGATIVE; URINE PHENCYCLIDINE SCREEN NEGATIVE
--- NOTE | 2018-04-02 17:38 | RADIOLOGY REPORT (SQ) ---
EXAM DESCRIPTION: CT HEAD WITHOUT COMPLETED DATE/TIME: 04/02/2018 5:24 pm REASON FOR STUDY: AMS COMPARISON: CT head 03/27/2018, 06/20/2016. MRI head 05/22/2016. TECHNIQUE: Axial images acquired through the brain without intravenous contrast. Images reviewed wi th bone, brain and subdural windows. Images stored on PACS. All CT scanners at this facility use dose modulation, iterative reconstruction, and/or weight based d osing when appropriate to reduce radiation dose to as low as reasonably achievable (ALARA). [facility]: Dose Right [facility]: CareDose [facility]: Dose Right [facility]: Teradose 4D [facility]: [employer] RADIATION DOSE: CT Rad equipment meets quality standard of care and radiation dose reduction techniq ues were employed. CTDIvol: 53.2 mGy. DLP: 1017 mGy-cm. mGy. LIMITATIONS: None. FINDINGS: VENTRICLES: Mildly prominent. CEREBRUM: No mass effect. No hemorrhage. No midline shift. Areas of low density in the white matte r most likely due to chronic micro-vascular ischemic change. No evidence for acute territorial infar ction. CEREBELLUM: No hemorrhage. No alteration of density. No evidence for acute infarction. EXTRAAXIAL SPACES: Age-related involutional change. No fluid collections. ORBITS AND GLOBE: Symmetrical contour of the globes. CALVARIUM: No depressed fracture. PARANASAL SINUSES: No air-fluid level. SOFT TISSUES: No hematoma. Portable IMPRESSION: No acute intracranial hemorrhage or acute territorial infarct. Mild chronic changes of atrophy and microvascular ischemia. EVIDENCE OF ACUTE STROKE: NO. COMMENT: Quality ID # 436: Final reports with documentation of one or more dose reduction techniques (e.g., Automated exposure control, adjustment of the mA and/or kV according to patient size, use of iterative reconstruction technique) TECHNICAL DOCUMENTATION: JOB ID: [id number] 2010 [employer]- All Rights Reserved Reading location - IP/workstation name: [email or web address]
[2018-04-02 18:32] LABS: APPEARANCE,URINE CLEAR; BILIRUBIN,URINE NEGATIVE (NEGATIVE); COLOR,URINE COLORLESS; GLUCOSE, URINE NEGATIVE (NEGATIVE); KETONES,URINE NEGATIVE (NEGATIVE); LEUKOCYTE ESTERASE,URINE NEGATIVE (NEGATIVE); NITRITE,URINE NEGATIVE (NEGATIVE); PROTEIN,URINE NEGATIVE (NEGATIVE); URINE SPECIFIC GRAVITY 1.005; UROBILINOGEN,URINE NEGATIVE mg/dL (<2.0)
[2018-04-02] MEDS ORDERED: NA PHOS,M-B/NA PHOS,DI-BA (ADULT) 133 ML ENEMA PR ONE (19:48)
[2018-04-02] MEDS ORDERED: LORAZEPAM INJ 2 MG/1 ML VIAL IV ONE (21:19)
[2018-04-02 21:32] LABS: ANION GAP 12 (5-19); BLOOD UREA NITROGEN 34 mg/dL (7-20); CALCIUM 9.1 mg/dL (8.4-10.2); CARBON DIOXIDE 30 mmol/L (22-30); CHLORIDE 103 mmol/L (98-107); GLUCOSE 170 mg/dL (75-110); POTASSIUM 5.1 mmol/L (3.6-5.0); SODIUM 145.2 mmol/L (137-145)
[2018-04-02] MEDS ORDERED: MORPHINE SULFATE 10 MG/ML INJ IV ONE (22:30)
[2018-04-02] MEDS ORDERED: LACTULOSE SYRUP 20 GM/30 ML UDCUP PO ONE (22:31)
[2018-04-02] MEDS ORDERED: IPRATROPIUM/ALBUTEROL 0.5-2.5 MG/3 ML AMPUL NEB PRN (22:32)
[2018-04-02] MEDS ORDERED: MAG HYDROX/AL HYDROX/SIMETH SUSP 30 ML UDCUP PO PRN (22:32)
[2018-04-02] MEDS ORDERED: CARVEDILOL 6.25 MG TABLET PO ONE (22:45)
[2018-04-02 23:43] LABS: CREATINE KINASE MB 1.09 ng/mL (<4.55); TROPONIN I 0.026 ng/mL
[2018-04-02] MEDS: NORMAL SALINE 1000 ML 1,000 ML IV PRN (23:49)
[2018-04-03] MEDS ORDERED: FUROSEMIDE INJ/PF 40 MG/4 ML SDV IV ONE (01:00)
--- NOTE | 2018-04-03 01:11 | PDOC H&P ---
History of Present Illness Admission Date/PCP: 04/02/18 23:13 HIMA LIU NP Patient complains of: Tremor and abdominal pain History of Present Illness: STERLING GUAMAN is a 77 year old female with a past medical history of chronic pain, morbid obesity, obstructive sleep apnea, diabetes anemia and chronic constipation. She presents with 72 hours of constipation, 24 hours of generalized weakness and falls without injury prompting her to seek evaluation in the emergency room where she is found to have uncontrolled hypertension, tachycardia, mild myoclonic jerking and a bicarb of 37. She is a poor historian but denies chest pain, shortness of breath, headache, fever or dysuria. Patient admits to missing several medications recently. She appears anxious and receives a trial of Ativan without improvement followed by a trial of morphine that improves mood but tachycardia remains. Past Medical History Cardiac Medical History: Reports: Congestive Heart Failure, Coronary Artery Disease, Myocardial Infarction, Hyperlipidema, Hypertension - HTN, pulmonary HTN Pulmonary Medical History: Reports: Chronic Obstructive Pulmonary Disease (COPD) , Other - Obstructive sleep apnea Denies: Tuberculosis Endocrine Medical History: Reports: Diabetes Mellitus Type 2, Obesity GI Medical History: Reports: Hiatal Hernia Psychiatric Medical History: Denies: Depression Hematology: Reports: Anemia Past Surgical History Past Surgical History: Reports: Appendectomy, Cholecystectomy, Coronary Artery Bypass Graft, Tonsillectomy Social History Information Source: Patient, [facility] Records Lives with: Spouse/Significant other Smoking Status: Current Some Day Smoker Frequency of Alcohol Use: None Hx Recreational Drug Use: No Drugs: None Hx Prescription Drug Abuse: No - Advance Directive Resuscitation Status: Full Code Family History Family History: Hypertension Parental Family History Reviewed: Yes Children Family History Reviewed: Yes Sibling(s) Family History Reviewed.: Yes Medication/Allergy Home Medications: Aspirin [Aspirin EC] 81 mg PO DAILY 12/25/13 Iron Polysaccharides Complex [Nu-Iron 150 Capsule] 150 mg PO DAILY #0 capsule Nystatin/Triamcin [Mycolog-II Cream 15 gm] 1 applic TP QID #0 tube 01/15/14 Atorvastatin Calcium 40 mg PO DAILY 05/19/16 Docusate Sodium [Colace 100 mg Capsule] 100 mg PO BID 05/19/16 Glimepiride [Amaryl 4 mg Tablet] 4 mg PO BID 05/19/16 Ondansetron [Zofran Odt 4 mg Tablet] 4 mg PO Q4HP PRN 05/19/16 Sennosides/Docusate 8.6-50 mg [Senna Plus Tablet] 2 each PO QHS PRN 05/19/16 Carboxymethylcellulose Sodium [Refresh Plus 0.5% Oph Soln 0.4 ml Droperette] 1 drop OU QIDP PRN droperette 05/31/16 Ipratropium/Albuterol Sulfate [Duoneb 3 ml Ampul] 3 ml NEB RTQ6 vial.neb Lansoprazole [Prevacid 30 mg Odt Tablet] 30 mg PO BID@0600,1700 tab.rap.dr 06/08 Lisinopril [Prinivil 10 mg Tablet] 10 mg PO DAILY tablet 05/31/16 Polyethylene Glycol 3350 [Miralax Powder 17 gm/Packet] 17 gm PO DAILY powd.pack 05/31/16 Pregabalin [Lyrica 100 mg Capsule] 100 mg PO TID #90 capsule 05/31/16 Sucralfate [Carafate Susp 1 gm/10 ml Udcup] 1 gm PO BID udc 05/31/16 Venlafaxine HCl ER [Effexor Xr 75 mg Cap.sr] 75 mg PO DAILY #30 cap.sr.24h 05/31 Insulin Lispro [Humalog] 0 units SQ ACHS PRN 06/26/16 Bisacodyl [Dulcolax 10 mg Supp.rect] 10 mg UT DAILYP PRN supp.rect 06/30/16 Budesonide [Pulmicort Neb 0.5 mg/2 ml Ampul] 0.5 mg NEB RTQ12 ampul.neb Carvedilol [Coreg 6.25 mg Tablet] 6.25 mg PO Q12 tablet 06/30/16 Enoxaparin Sodium [Lovenox Inj 40 mg/0.4 ml Disp.syrin] 40 mg SUBCUT QAM disp.syrin 06/30/16 Furosemide [Lasix 40 mg Tablet] 40 mg PO DAILY tablet 06/30/16 Insulin Glargine,Hum.rec.anlog [Lantus Insulin 100 Unit/mL] 20 unit SUBCUT DAILY insuln.pen 06/30/16 Levetiracetam [Keppra] 500 mg PO BID #60 tablet 06/30/16 Lidocaine [Lidoderm 5% (700 mg) Transdermal Patch] 2 patch TP DAILY #20 adh..patch 06/30/16 Tramadol HCl [Ultram 50 mg Tablet] 50 mg PO Q6HP PRN #30 tablet 06/30/16 Ferrous Sulfate [Feosol] 325 mg PO DAILY #60 tablet 03/24/18 Hydrocodone/Acetaminophen [Pony 5-325 Tablet] 1 each PO Q4HP PRN #20 tablet 11/10 Allergies/Adverse Reactions: iodine [Iodine] Allergy (Verified 03/24/18 15:53) nortriptyline [Nortriptyline] Allergy (Verified 03/24/18 15:53) Penicillins Allergy (Verified 03/24/18 15:53) Review of Systems ROS unobtainable: Due to mental status Physical Exam Vital Signs: Temp Pulse Resp BP Pulse Ox 98.6 F 98 23 H 178/81 H 94 04/02/18 17:00 04/02/18 17:00 04/03/18 00:00 04/03/18 00:00 04/03/18 00:00 General appearance: PRESENT: cooperative, disheveled, mild distress, morbidly obese Head exam: PRESENT: atraumatic, normocephalic Eye exam: PRESENT: conjunctiva pink, EOMI, PERRLA. ABSENT: scleral icterus Ear exam: PRESENT: normal external ear exam Mouth exam: PRESENT: moist, tongue midline Neck exam: ABSENT: carotid bruit, JVD, lymphadenopathy, thyromegaly Respiratory exam: PRESENT: clear to auscultation adal, crackles. ABSENT: prolonged expiratory phas, rales, retraction, rhonchi, wheezes Cardiovascular exam: PRESENT: RRR. ABSENT: diastolic murmur, rubs, systolic murmur Pulses: PRESENT: normal dorsalis pedis pul Vascular exam: PRESENT: normal capillary refill GI/Abdominal exam: PRESENT: distended, hypoactive bowel sounds, soft, tenderness. ABSENT: guarding, hernia Rectal exam: PRESENT: deferred Extremities exam: PRESENT: full ROM. ABSENT: calf tenderness, clubbing, pedal edema Neurological exam: PRESENT: alert, awake, oriented to person, oriented to place , oriented to situation, CN II-XII grossly intact. ABSENT: motor sensory deficit Psychiatric exam: PRESENT: appropriate affect, normal mood. ABSENT: homicidal ideation, suicidal ideation Skin exam: PRESENT: dry, intact, warm. ABSENT: cyanosis, rash Results Impressions: Head CT 04/02/18 00:00 IMPRESSION: No acute intracranial hemorrhage or acute territorial infarct. Mild chronic changes of atrophy and microvascular ischemia. EVIDENCE OF ACUTE STROKE: NO. Assessment & Plan - Diagnosis (1) Tachycardia Is this a current diagnosis for this admission?: Yes Plan: Unclear however history and exam suggests left lower quadrant pain with constipation. Trial enema and lactulose. Obtain abdominal series and IV fluid challenge. Differential abrupt discontinuation of beta-tracy. (2) Sleep apnea Is this a current diagnosis for this admission?: Yes Plan: BiPAP ordered while asleep (3) Left lower quadrant pain Is this a current diagnosis for this admission?: Yes Plan: Abdominal series, lactulose and Fleet enema. (4) Hyperkalemia Is this a current diagnosis for this admission?: Yes Plan: Possibly secondary to constipation. Kayexalate received in the emergency room, follow-up chemistry (5) Myoclonic jerking Is this a current diagnosis for this admission?: Yes Plan: Suspected noncompliance with BiPAP. Follow-up chemistry following BiPAP administration. (6) Acute encephalopathy Is this a current diagnosis for this admission?: Yes Plan: Likely hypercapnic, empiric treatment with BiPAP consider ABG if not improved (7) Diabetes mellitus type 2 Is this a current diagnosis for this admission?: Yes Plan: Home regiment with Humalog sliding scale coverage. - Time Time Spent: 50 to 70 Minutes - Inpatient Certification Medical Necessity: Need Close Monitoring Due to Risk of Patient Decompensation
--- NOTE | 2018-04-03 01:14 | RADIOLOGY REPORT (SQ) ---
CXR- 1 VIEW Clinical history: 77-year-old female with tachycardia. Comparison: 24 March 2018 Technique: 1 view of the chest submitted for review. Findings: The lungs are adequately expanded without evidence of infiltrate and/or effusion. Mediastinal wires are aligned and intact. The cardiac silhouette measures enlarged. Pulmonary vascularity is unremarkable. Osseous structures are within normal limits for age. Impression: 1. Stable cardiomegaly with postop changes. 2. Otherwise No plain film evidence for acute cardiopulmonary disease.
[2018-04-03 01:39] LABS: ABSOLUTE RETICS # 0.119 10^6/uL (0.028-0.122)
[2018-04-03] MEDS: ACETAMINOPHEN 325 MG TABLET PO PRN (01:53)
--- NOTE | 2018-04-03 03:48 | RADIOLOGY REPORT (SQ) ---
EXAM DESCRIPTION: XR ABDOMEN 2 VIEWS SUPINE ERECT COMPLETED DATE/TME: 04/03/2018 01:11 CLINICAL HISTORY: 77 years, Female, LLQ pain COMPARISON: None. NUMBER OF VIEWS: 2 LIMITATIONS: None. FINDINGS: Paucity of bowel gas. Sternotomy. Atherosclerosis. IMPRESSION: No acute findings.
[2018-04-03 05:48] LABS: ABSOLUTE EOSINOPHILS # (AUTO) 0.1 10^3/uL (0.0-0.6); ABSOLUTE LYMPHOCYTES (AUTO) 1.5 10^3/uL (0.5-4.7); ABSOLUTE MONOCYTES (AUTO) 0.6 10^3/uL (0.1-1.4); ABSOLUTE NEUT (AUTO) 7.2 10^3/uL (1.7-8.2); BASOPHILS % (AUTO) 0.5 % (0-2); EOSINOPHILS % (AUTO) 1.2 % (0-6); HEMATOCRIT 28.2 % (36.0-47.0); HEMOGLOBIN 8.8 g/dL (12.0-15.5); LYMPHOCYTES % (AUTO) 15.4 % (13-45); MEAN CORPUSCULAR HEMOGLOBIN 23.5 pg (27.0-33.4); MEAN CORPUSCULAR HGB CONC 31.4 g/dL (32.0-36.0); MEAN CORPUSCULAR VOLUME 75 fl (80-97); MONOCYTES % (AUTO) 6.4 % (3-13); PLATELET COUNT 152 10^3/uL (150-450); RED BLOOD COUNT 3.77 10^6/uL (3.72-5.28); RED CELL DISTRIBUTION WIDTH 18.7 % (11.5-14.0); SEGMENTED NEUTROPHILS % (AUTO) 76.5 % (42-78); TOTAL CELLS COUNTED % (AUTO) 100 %; WHITE BLOOD COUNT 9.4 10^3/uL (4.0-10.5)
[2018-04-03 05:58] LABS: ANION GAP 11 (5-19); BLOOD UREA NITROGEN 27 mg/dL (7-20); CALCIUM 8.4 mg/dL (8.4-10.2); CARBON DIOXIDE 32 mmol/L (22-30); CHLORIDE 103 mmol/L (98-107); CREATINE KINASE 101 U/L (30-135); GLUCOSE 166 mg/dL (75-110); POTASSIUM 4.3 mmol/L (3.6-5.0); SODIUM 145.9 mmol/L (137-145)
[2018-04-03 06:07] LABS: CREATINE KINASE MB 1.32 ng/mL (<4.55); TROPONIN I 0.047 ng/mL
[2018-04-03] MEDS ORDERED: DEXTROSE 50%-WATER SYRINGE 12.5 GM/25 ML DOSE IV PRN (06:43)
[2018-04-03] MEDS ORDERED: DEXTROSE 40% GEL 15 GM TUBE PO PRN (06:43)
[2018-04-03] MEDS ORDERED: GLUCAGON,HUMAN RECOMB 1 MG INJ IM PRN (06:43)
[2018-04-03] MEDS ORDERED: DEXTROSE 50%-WATER SYRINGE 25 GM/50 ML DOSE IV PRN (06:43)
[2018-04-03] MEDS ORDERED: DEXTROSE 40% GEL 15 GM TUBE X 2 PO PRN (06:43)
[2018-04-03] MEDS: HEPARIN SOD (PORCINE) 5,000 UNIT/ML 1 ML SYRINGE SUBCUT SCH ×3 (06:46→21:14)
[2018-04-03 07:18] LABS: IRON(TIBC) 15.2 ug/dL (37-170)
[2018-04-03] MEDS: INSULIN LISPRO 100 UNIT/ML 3 ML VIAL SUBCUT PRN ×3 (07:42→18:37)
[2018-04-03] MEDS: NORMAL SALINE 1000 ML 1,000 ML IV PRN (07:42)
--- NOTE | 2018-04-03 07:49 | EKG REPORT ---
SEVERITY:- ABNORMAL ECG - SINUS TACHYCARDIA RIGHT AXIS DEVIATION PROBABLE INFERIOR INFARCT, AGE INDETERMINATE : Confirmed by: Robert Michel MD 03-Apr-2018 07:48:34
[2018-04-03] MEDS ORDERED: SENNOSIDES/DOCUSATE 8.6-50 MG 1 EACH TABLET PO PRN (09:25)
[2018-04-03] MEDS ORDERED: MORPHINE SULFATE 10 MG/ML INJ IV ONE (09:30)
[2018-04-03] MEDS: GLIMEPIRIDE 4 MG TABLET PO SCH ×2 (09:30→18:37)
[2018-04-03] MEDS: VENLAFAXINE HCL 75 MG CAP.SR.24H PO SCH (09:31)
[2018-04-03] MEDS: LEVETIRACETAM 500 MG TABLET PO SCH ×2 (09:31→18:37)
[2018-04-03] MEDS: METOPROLOL SUCCINATE 25 MG TAB.SR.24H PO SCH ×2 (09:31→21:16)
[2018-04-03] MEDS: ASPIRIN 81 MG TABLET, ENT COATED PO SCH (09:31)
[2018-04-03] MEDS: CARVEDILOL 6.25 MG TABLET PO SCH ×2 (09:32→21:16)
[2018-04-03] MEDS: DOCUSATE SODIUM 100 MG CAPSULE PO SCH ×2 (09:32→18:38)
[2018-04-03] MEDS: IRON POLYSACCHARIDES COMPLEX 150 MG CAPSULE PO SCH (09:38)
[2018-04-03] MEDS: GABAPENTIN 300 MG CAPSULE PO SCH ×2 (09:38→21:15)
[2018-04-03 11:17] LABS: CREATINE KINASE MB 1.53 ng/mL (<4.55); TROPONIN I 0.043 ng/mL
[2018-04-03] MEDS: OXYCODONE-ACETAMINOPHEN 5-325 MG TABLET PO PRN ×2 (14:48→21:17)
--- NOTE | 2018-04-03 18:22 | PDOC PROGRESS REPORT ---
Subjective Progress Note for:: 04/03/18 Subjective:: Patient is seen resting in bed. She is awake and alert. She is aware she is in the hospital she is confused to time and date. She is slightly agitated complaining of pain in her lower extremities. She states she has had pain in her legs for the last year. She denies any chest pain, shortness of breath or dyspnea at rest. She denies any nausea, vomiting or abdominal pain. She complains again of pain in her lower extremities and feet. There is no obvious deformities or trauma. Remaining review of systems is negative. Reason For Visit: TACHYCARDIA,DIFFUSE PAIN,COPD,HYPERKALEMIA Physical Exam Vital Signs: Temp Pulse Resp BP Pulse Ox 97.9 F 106 H 18 145/87 H 96 04/03/18 12:01 04/03/18 16:00 04/03/18 16:00 04/03/18 12:01 04/03/18 16:00 Intake & Output 04/02/18 04/03/18 04/04/18 06:59 06:59 06:59 Intake Total 650 200 Output Total 1800 625 Balance -1150 -425 Weight 90.9 kg General appearance: PRESENT: no acute distress, obese, well-developed, well- nourished Head exam: PRESENT: atraumatic, normocephalic Eye exam: PRESENT: conjunctiva pale, EOMI, PERRLA. ABSENT: scleral icterus Ear exam: PRESENT: normal external ear exam Mouth exam: PRESENT: moist, tongue midline Teeth exam: PRESENT: poor dentation Neck exam: ABSENT: carotid bruit, JVD, lymphadenopathy, thyromegaly Respiratory exam: PRESENT: decreased breath sounds, symmetrical, unlabored Cardiovascular exam: PRESENT: RRR. ABSENT: diastolic murmur, rubs, systolic murmur Pulses: PRESENT: normal dorsalis pedis pul Vascular exam: PRESENT: normal capillary refill GI/Abdominal exam: PRESENT: normal bowel sounds, soft. ABSENT: distended, guarding, mass, organolmegaly, rebound, tenderness Rectal exam: PRESENT: deferred Musculoskeletal exam: PRESENT: full ROM, tenderness Neurological exam: PRESENT: alert, altered, awake, oriented to person Psychiatric exam: PRESENT: agitated Focused psych exam: PRESENT: restlessness Skin exam: PRESENT: dry - Chronic venous stasis changes bilateral extremities, warm, other Results Laboratory Results: 04/03/18 05:13 04/03/18 05:13 04/03/18 04/03/18 05:13 05:13 WBC 9.4 RBC 3.77 Hgb 8.8 L Hct 28.2 L MCV 75 L MCH 23.5 L MCHC 31.4 L RDW 18.7 H Plt Count 152 Seg Neutrophils % 76.5 Lymphocytes % 15.4 Monocytes % 6.4 Eosinophils % 1.2 Basophils % 0.5 Absolute Neutrophils 7.2 Absolute Lymphocytes 1.5 Absolute Monocytes 0.6 Absolute Eosinophils 0.1 Absolute Basophils 0.0 Sodium 145.9 H Potassium 4.3 Chloride 103 Carbon Dioxide 32 H Anion Gap 11 BUN 27 H Creatinine 0.79 Est GFR ( Amer) > 60 Est GFR (Non-Af Amer) > 60 Glucose 166 H Calcium 8.4 04/03/18 04/03/18 04/03/18 05:13 05:13 10:33 Creatine Kinase 101 102 CK-MB (CK-2) 1.32 Troponin I 0.047 04/03/18 10:33 Creatine Kinase CK-MB (CK-2) 1.53 Troponin I 0.043 Impressions: Head CT 04/02/18 00:00 IMPRESSION: No acute intracranial hemorrhage or acute territorial infarct. Mild chronic changes of atrophy and microvascular ischemia. EVIDENCE OF ACUTE STROKE: NO. Abdomen X-Ray 04/03/18 01:11 IMPRESSION: No acute findings. Assessment & Plan - Diagnosis (1) Acute encephalopathy Is this a current diagnosis for this admission?: Yes Plan: According to patient's she has been increasingly confused at home over the last several months. No infectious source identified. (2) Hyperkalemia Is this a current diagnosis for this admission?: Yes Plan: Improved with treatment. (3) Myoclonic jerking Is this a current diagnosis for this admission?: Yes Plan: Resolved. (4) Sleep apnea Is this a current diagnosis for this admission?: Yes Plan: CPAP at at bedtime (5) Tachycardia Is this a current diagnosis for this admission?: Yes Plan: Improved with hydration and pain medication (6) Diabetes mellitus type 2 Is this a current diagnosis for this admission?: Yes Plan: Tinea current medications and sliding scale coverage (7) Generalized weakness Is this a current diagnosis for this admission?: Yes Plan: Continue physical therapy (8) Obesity Qualifiers: Obesity type: with alveolar hypoventilation Qualified Code(s): E66.2 - Morbid (severe) obesity with alveolar hypoventilation Is this a current diagnosis for this admission?: Yes
[2018-04-04] MEDS: OXYCODONE-ACETAMINOPHEN 5-325 MG TABLET PO PRN ×4 (01:19→19:47)
[2018-04-04] MEDS: ACETAMINOPHEN 325 MG TABLET PO PRN (02:41)
[2018-04-04] MEDS ORDERED: DILTIAZEM HCL 60 MG TABLET PO ONE (05:30)
[2018-04-04] MEDS: HEPARIN SOD (PORCINE) 5,000 UNIT/ML 1 ML SYRINGE SUBCUT SCH ×3 (05:40→22:03)
[2018-04-04] MEDS: GLIMEPIRIDE 4 MG TABLET PO SCH ×2 (09:09→17:53)
[2018-04-04] MEDS: LEVETIRACETAM 500 MG TABLET PO SCH (09:09)
[2018-04-04] MEDS: IRON POLYSACCHARIDES COMPLEX 150 MG CAPSULE PO SCH (09:10)
[2018-04-04] MEDS: CARVEDILOL 6.25 MG TABLET PO SCH (09:10)
[2018-04-04] MEDS: GABAPENTIN 300 MG CAPSULE PO SCH ×2 (09:10→22:02)
[2018-04-04] MEDS: ASPIRIN 81 MG TABLET, ENT COATED PO SCH (09:10)
[2018-04-04] MEDS: METOPROLOL SUCCINATE 25 MG TAB.SR.24H PO SCH (09:10)
[2018-04-04] MEDS: DOCUSATE SODIUM 100 MG CAPSULE PO SCH ×2 (09:10→17:52)
[2018-04-04] MEDS: VENLAFAXINE HCL 75 MG CAP.SR.24H PO SCH (09:11)
[2018-04-04] MEDS: INSULIN LISPRO 100 UNIT/ML 3 ML VIAL SUBCUT PRN ×3 (12:30→22:13)
--- NOTE | 2018-04-04 13:40 | EKG REPORT ---
SEVERITY:- ABNORMAL ECG - ATRIAL FLUTTER, A-RATE 254 INCOMPLETE RIGHT BUNDLE BRANCH BLOCK PROBABLE INFERIOR INFARCT, AGE INDETERMINATE : Confirmed by: Robert Michel MD 04-Apr-2018 13:39:38
[2018-04-04] MEDS ORDERED: DILTIAZEM HCL/D5W 125 MG/125 ML RTUINJ IV PRN (15:00)
--- NOTE | 2018-04-04 17:56 | PDOC PROGRESS REPORT ---
Subjective Progress Note for:: 04/04/18 Subjective:: STERLING GUAMAN is a 77 y.o. F who presented to the ED 04/02/2018 for bilateral lower extremity weakness, tremors, and a recent history of frequent falls at home. PMH includes diabetes, CHF, CAD, MT, HTN, HLD, COPD, CABG, anemia, ZAFAR, obesity, chronic pain, constipation. CT head benign. Hospitalist television parts tester documented that he witnessed tremors in ED, started patient on Keppra. Overnight, the nursing staff reports that the patient converted from NSR/S. Tach to AFIB/AFLUTTER. Her rate was 100-115. Vacuum Caster administered a 1 time dose of Cardizem. No EKG was completed. The patient was seen this morning on rounds. She is resting comfortably in bed on nasal cannula. She is awake and alert, understands why she is in the hospital but does not know the month/year. The patient denies chest pain, shortness of breath, dyspnea, nausea, vomiting, or abdominal pain. The patient complains of weakness and pain in her lower extremities. She states she is able to ambulate OOB to chair with assistance, but states she experiences constant pain in her lower extremities when doing so. Her legs are tender to palpation however, there is no edema, skin is pink/warm/dry, DP and PT pulses are palpable. The patient remains in AFIB/AFLUTTER, her weight fluctuates between 80 -110. Blood pressure remains within normal limits. Reason For Visit: ACUTE ENCEPHALOPATHY, HYPERKALEMIA, TACHYCARDIA Physical Exam Vital Signs: Temp Pulse Resp BP Pulse Ox 98.1 F 102 H 18 103/43 L 96 04/04/18 15:19 04/04/18 16:10 04/04/18 16:10 04/04/18 15:19 04/04/18 16:10 General appearance: PRESENT: no acute distress, morbidly obese Eye exam: PRESENT: conjunctiva pink, PERRLA Mouth exam: PRESENT: dry mucosa Teeth exam: PRESENT: poor dentation Neck exam: PRESENT: full ROM Respiratory exam: PRESENT: clear to auscultation adal, symmetrical, unlabored Cardiovascular exam: PRESENT: irregular rhythm Pulses: PRESENT: normal radial pulses, normal dorsalis pedis pul GI/Abdominal exam: PRESENT: normal bowel sounds, soft. ABSENT: tenderness Rectal exam: PRESENT: deferred Extremities exam: PRESENT: full ROM, tenderness. ABSENT: joint swelling, pedal edema Musculoskeletal exam: PRESENT: ambulatory - With assistance, tenderness - Bilateral lower extremities. ABSENT: deformity Neurological exam: PRESENT: alert, awake, oriented to person, oriented to place , oriented to situation. ABSENT: oriented to time, normal gait Skin exam: PRESENT: dry, intact, normal color Results Impressions: Head CT 04/02/18 00:00 IMPRESSION: No acute intracranial hemorrhage or acute territorial infarct. Mild chronic changes of atrophy and microvascular ischemia. EVIDENCE OF ACUTE STROKE: NO. Abdomen X-Ray 04/03/18 01:11 IMPRESSION: No acute findings. Status: Imported from PACS Assessment & Plan - Diagnosis (1) Acute encephalopathy Is this a current diagnosis for this admission?: Yes Plan: Unclear etiology. According to the patient's she has been increasingly confused at home over the last several months. Head CT negative. Plan for MRI brain. (2) Atrial fibrillation and flutter Is this a current diagnosis for this admission?: Yes Plan: Nursing staff reports patient converted from NSR to AFIB/AFLUTTER overnight Given PO Cardizem x 1 overnight. It is possible this occurred because the patient was not restarted on her home dose of cardizem. Cardiology was consulted, patient was started on Cardizem gtt. Dr. Cota d/babar'livier PO carvedilol, continued PO Toprol Appreciate cardiology recommendations (3) Sleep apnea Qualifiers: Sleep apnea type: unspecified type Qualified Code(s): G47.30 - Sleep apnea , unspecified Is this a current diagnosis for this admission?: Yes Plan: Patient endorses history of sleep apnea. CPAP at bedtime. (4) Generalized weakness Is this a current diagnosis for this admission?: Yes Plan: Continue physical therapy. Plan for MRI lumbar spine to evaluate for bilateral lower extremity weakness. Venous and arterial duplex studies to evaluate for lower extremity pain and weakness. The patient will require placement at acute rehab following [facility] from [facility]. Discharge planning aware and assisting with placement to acute rehab (5) Myoclonic jerking Is this a current diagnosis for this admission?: Yes Plan: Resolved. Unclear etiology. Consult [facility], they recommend MRI brain and discontinue Keppra. Continue to observe for tremor re-occurrence. If there is recurrence of seizure-like activity, will need to initiate EEG and re-consult neurology. (6) Diabetes mellitus type 2 Is this a current diagnosis for this admission?: Yes Plan: Patient endorses history of diabetes. Accu-Cheks before meals at bedtime and Humalog sliding scale coverage. (7) Hyperkalemia Is this a current diagnosis for this admission?: Yes Plan: Resolved. (8) Obesity Qualifiers: Obesity type: with alveolar hypoventilation Qualified Code(s): E66.2 - Morbid (severe) obesity with alveolar hypoventilation Is this a current diagnosis for this admission?: Yes Plan: BMI 37.5 qualifies for morbid obesity. Exercise restraint with dietary choices. - Time Time Spent with patient: 15-24 minutes Medications reviewed and adjusted accordingly: Yes Anticipated discharge: Acute Rehab - Inpatient Certification Based on my medical assessment, after consideration of the patient's comorbidities, presenting symptoms, or acuity I expect that the services needed warrant INPATIENT care.: Yes I certify that my determination is in accordance with my understanding of Medicare's requirements for reasonable and necessary INPATIENT services [42 CFR 412.3e].: Yes Medical Necessity: Risk of Complication if Not Cared For in Hospital - Plan Summary Plan Summary: Pursue neurology workup. Plan for discharge to acute rehab facility.
[2018-04-04] MEDS ORDERED: DILTIAZEM HCL 120 MG CAP.SR.24H PO ONE (21:30)
[2018-04-04] MEDS: PREGABALIN 75 MG CAPSULE PO SCH (22:02)
--- NOTE | 2018-04-04 22:24 | RADIOLOGY REPORT (SQ) ---
EXAM DESCRIPTION: MRI HEAD WITHOUT COMPLETED DATE/TIME: 04/04/2018 10:01 pm REASON FOR STUDY: new tremors. weakness. confusion. falls. D46.4 REFRACTORY ANEMIA, UNSPECIFIED COMPARISON: CT dated 04/02/2018. TECHNIQUE: Multiplanar imaging includes non-contrasted T1, T2, FLAIR, and diffusion with ADC map seq uences. Images stored on PACS. LIMITATIONS: Motion artifact. FINDINGS: ANATOMY: No anomalies. Normal vascular flow voids. Pituitary fossa normal. CSF SPACES: Atrophy induced prominence of ventricles and CSF spaces. CEREBRUM: High signal intensity lesions scattered throughout the white matter on FLAIR imaging with d istribution suggesting micro-vascular ischemic changes. No evidence of hemorrhage, mass, or extraaxi al fluid collection. POSTERIOR FOSSA: No signal alteration. No hemorrhage. No edema, masses or mass effect. Internal neri tory canals, cerebello-pontine angles, mastoids normal. DIFFUSION IMAGING: Negative for acute or sub-acute infarction. ORBITS: No masses. Globes normal. PARANASAL SINUSES: No fluid levels. Mucosa normal. OTHER: No other significant finding. IMPRESSION: ATROPHY AND CHRONIC MICRO-VASCULAR ISCHEMIC CHANGES. OTHERWISE NORMAL MRI OF THE BRAIN W ITHOUT INTRAVENOUS GADOLINIUM CONTRAST. EVIDENCE OF ACUTE STROKE: NO. TECHNICAL DOCUMENTATION: JOB ID: [id number] [employer]- All Rights Reserved Reading location - IP/workstation name: [email or web address]
--- NOTE | 2018-04-05 00:25 | CONSULTATION REPORT E ---
Consultation Report NAME: STERLING GUAMAN : 1940 AGE: 77Y DATE: 04/04/2018 320 A TO: YOLANDE MCKINNEY M.D. FROM: CHAD GUAMAN M.D. Requesting Physician REASON FOR CONSULTATION: Recent onset of atrial fibrillation/flutter. HISTORY: Note: The patient had altered mental status with a history of increasing confusion over the past several months as per chart. Not able to give a very good history. As per records, the patient is admitted with lower extremity weakness, constipation along with generalized weakness and history of frequent falls without injury and also myoclonic jerks and was in sinus tachycardia. She, last night, went into atrial fibrillation with flutter and ventricular response of 100-115. Although there is no clear cut past history of atrial fibrillation, she was seen here in 2016 and her EKG was diagnosed as atrial fibrillation but the link trainer maintenance worker who reviewed the strips at that time opined that the patient had sinus rhythm with very frequent APCs and not atrial fibrillation. Although she is drowsy, she is able to answer some questions and denies any chest pain or discomfort. There are no symptoms suggestive of acute exacerbation of COPD. There is no leg edema. She has generalized weakness but no focal neurological deficits. PAST MEDICAL HISTORY: Positive for history of coronary artery disease, details of which are not know. She has a history of coronary artery bypass graft surgery and there is no definite way of ascertaining whether the patient had a past history of PA but it looks like the patient does not have any chest pain at present. There is a past history of congestive heart failure, etiology most likely left ventricular diastolic dysfunction. As per 2016 echo, she had a moderate pulmonary hypertension. She had normal LV ejection fraction at that time. She also has a history of diabetes mellitus type 2, obesity, COPD, and history of obstructive sleep apnea. It is not know whether the patient does use CPAP. She also has a history of hypertension, hyperlipidemia as per the chart. It does say that the patient had a myocardial infarction although the patient denies it. She also has a history of anemia and at present, the patient is anemic and the etiology of which is obscure. There is no history of chronic kidney disease. No definite history of TIA or CVA. She has a past history of seizures. PAST SURGICAL HISTORY: Positive for: 1. Appendectomy. 2. Cholecystectomy. 3. Coronary artery bypass graft surgery. 4. Tonsillectomy. SOCIAL HISTORY: The patient does smoke on some days, the details of which are not known. ALLERGIES: 1. IODINE 2. NORTRIPTYLINE 3. PENICILLINS. DISPOSITION: THE PATIENT IS A FULL CODE. Her is the surrogate healthcare decision maker. FAMILY HISTORY: Positive for history of hypertension and coronary artery disease. REVIEW OF SYSTEMS: Very limited. There are no fevers, chills or rigors. There is history of frequent falls with no injury. There is no history of visual disturbances. There is no history of hearing loss. The patient recently has been having altered mental status. The patient has history of GERD. No history of GI bleed. The patient has obesity. She has obstructive sleep apnea and it is not clear whether she uses CPAP. No recent symptoms suggestive of acute exacerbation of COPD or pneumonia. She has a history of diabetes mellitus. No history of chronic kidney disease. The patient's potassium was slightly high on admission which is now normalized. There is no definite history of TIA or CVA. She has history of coronary artery disease. History of coronary artery bypass graft surgery and as per records, a history of PA in the past but no recent symptoms of chest pain. She denies any GI bleed. On review of the patient's records, there is no suggestion of a GI bleed. MEDICATIONS: 1. Aspirin 81 mg p.o. daily. 2. Glucose 40% gel 15 g p.o. and 20 g p.o. respectively hypoglycemia. 3. Dextrose 50% at 12.5 g and 25 g IV p.r.n. hypoglycemia. 4. She did receive diltiazem 50 mg p.o. x1 and 60 mg p.o. x1. 5. Colace 100 mg p.o. b.i.d. 6. Neurontin 300 mg p.o. q. 12 hours. 7. Amaryl 4 mg p.o. b.i.d. 8. Glucagon 1 mg intramuscular p.r.n. 9. Heparin 5000 units subcutaneously q. 8 hours. 10. Accu-Chek with sliding scale insulin coverage. 11. DuoNeb 3 mL nebulizer treatment q. 12 hours p.r.n. 12. Iron polysaccharide complex 150 mg p.o. daily. 13. Magnesium hydroxide 30 mL p.o. q. 6 hours p.r.n. 14. Metoprolol succinate 25 mg p.o. q. 12 hours. 15. Lyrica 150 mg p.o. q. 8 hours. 16. Sennoside with docusate 1 p.o. b.i.d. 17. Effexor 75 mg p.o. daily. PHYSICAL EXAMINATION: GENERAL: The patient is moderately obese, well groomed but very confused. Does not answer questions very appropriately but does answer some questions but it is not known how reliable these answers are. VITAL SIGNS: She is afebrile with a temperature of 97.8 degrees Fahrenheit. Pulse is 68 beats per minute. Subsequently, the patient's heart rate went up to 115 beats per minute. Blood pressure is 121/43. Her respirations are 18 per minute. O2 sats are 100% on BiPAP with FiO2 of 30%. HEENT: Head is atraumatic and normocephalic. Eyes: Pupils are equal, round, regular, reactive to light and accommodation. There is no conjunctival pallor present. There is no scleral icterus. Ears: Tympanic membranes are intact. External auditory canals are clear. Nose: There is no deviated nasal septum. There is no inflammation of the nasal mucous membranes. Mouth: Mucous membranes of the mouth are moist. Tongue is moist. There are no ulcers. There is no bleeding from the gums. Throat: There is no redness of the oropharynx. There are no exudates. SKIN: There are no skin rashes. There is no petechia or ecchymosis. There are no skin lesions. NECK: Supple. There is no JVD. Carotids are equal. There is no bruit. There is no lymphadenopathy. There is no goiter. Trachea central. LUNGS: Show diminished air entry, prolonged expiration without any rhonchi, rales or wheezing. On percussion, there is hyperresonance throughout. There is no chest wall tenderness. HEART: S1 and S2 is heard. S1 is of variable intensity. There is no S3 gallop. There is no S4 gallop. A systolic murmur of the left sternal border on the apex. There is no rub. ABDOMEN: Soft, nontender, obese. There is no hepatosplenomegaly. Bowel sounds are well heard. EXTREMITIES: Femorals are deep. There are no femoral bruits. Leg pulses are diminished. There is no pedal edema. There is no DVT or cellulitis. There is no calf tenderness. There is no cyanosis or clubbing. CENTRAL NERVOUS SYSTEM: The patient is awake but very drowsy with no focal deficits. She is moving all 4 extremities. PSYCHIATRIC: The patient is very drowsy and hence, not tested. DIAGNOSTICS: The patient's EKG done shows atrial flutter with ventricular response of 101 beats per minute, incomplete right bundle branch block pattern and probably inferior wall PA which I doubt. This is a normal Q in the inferior leads. The patient's abdominal x-ray shows paucity of bowel gas, sternotomy, atherosclerosis. The patient's head CT shows no acute intracranial hemorrhage or acute territorial infarct, mild chronic changes of atrophy and microvascular ischemia. No evidence of stroke. The patient's EKG on admission shows sinus tachycardia but most likely, this is atrial flutter with rapid ventricular response. There is right axis deviation. The patient's chest x-ray done on 04/03/2018 shows stable cardiomegaly with postop changes, no plain film evidence of acute cardiopulmonary disease. The patient's troponin I is 0.026, 0.047, and 0.043. CPK and CPK-MB are negative. Yesterday, the patient's sodium was 145.9, potassium 4.3, chloride 103, CO2 is 32, the patient's BUN is 27, creatinine 0.79, and her GFR is greater than 60, glucose is 166, her calcium is 8.4. The patient's TSH was 0.98. The patient's folate was 15.90, B12 was 492. The patient's liver function tests were normal on the with an elevated alk phos of 173. The patient's iron was low at 15.2, TIBC is 434, percent saturation 4, ferritin is 19.10. The patient's white count is 9400; hemoglobin is down to 8.8, on admission, it was 9.1; her hematocrit is 28.2; and her MCV is low at 75, and platelets are 152,000. Her reticulocyte count is 3.10, absolute retic is 0.119. Her SED rate is *------*. The patient's serum alcohol is less than 10. The patient's urine marijuana, cocaine, benzodiazepine, amphetamine, phencyclidine, barbiturates, methadone, and opiate screens are all negative. Note that the patient's had echocardiogram in 2016 and this showed moderate pulmonary hypertension with trace to mild to moderate tricuspid regurgitation. There is a trace to mild amount of mitral regurgitation. There is trace amount of aortic regurgitation. There is no aortic valve stenosis. There is borderline concentric left ventricular hypertrophy. Left ventricle is grossly normal in size. Regional wall motion abnormalities cannot be excluded due to limited visualization. There is normal left ventricular systolic function with mild to moderate diastolic dysfunction. There is no pericardial effusion. IMPRESSION: 1. Atrial flutter. Patient's initial admission EKG is very suspicious for atrial flutter with a fast ventricular response although it has been read as sinus tachycardia. Note that the patient is not a candidate for long-term anticoagulation in view of the patient's iron deficiency anemia and the patient's history of frequent falls and the patient's altered mental status. Would recommend continued heparin subcutaneously q. 8 hours for DVT prophylaxis. Will start the patient on an IV Cardizem drip and increase the *------* and titrate it to control the patient's heart rate with close observation of the patient's blood pressure response to the Cardizem drip. 2. Altered mental status, ? early dementia. 3. Lower extremity weakness, ? cause. 4. Anemia, iron deficiency, ? etiology. 5. Coronary artery disease. No anginal symptoms. 6. History of old PA but EKG does not show any PA and history of coronary artery bypass graft surgery details are not available. 7. Pulmonary hypertension, moderate. 8. Diabetes mellitus type 2. 9. Hypertension, well controlled. 10. GERD. 11. COPD. 12. History of chronic pain. 13. Myoclonic jerks? The patient's Keppra has been discontinued. 14. History of seizures. 15. History of frequent falls. PLAN: Continue patient, as mentioned earlier, on Cardizem drip. I would later stop the patient's beta blockers and transition to Cardizem CD. Medical decision making is of moderate to high complexity. The patient was seen around 8:00 this morning. More than 50 minutes spent on the patient, more than 50% of the time spent on direct patient care. Her medications have been reviewed and adjusted and new medications added, as mentioned earlier. 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 Will follow. Will continue other current medications. Discussed with the hospitalist. DICTATING PHYSICIAN: YOLANDE MCKINNEY M.D. [id number] PHY#: [id number] ID: [id number] JOB#: [id number] ACCT: [id number] cc:YOLANDE MCKINNEY M.D. >
[2018-04-05] MEDS: OXYCODONE-ACETAMINOPHEN 5-325 MG TABLET PO PRN ×3 (03:33→23:33)
[2018-04-05] MEDS: HEPARIN SOD (PORCINE) 5,000 UNIT/ML 1 ML SYRINGE SUBCUT SCH ×3 (05:27→21:35)
[2018-04-05] MEDS: PREGABALIN 75 MG CAPSULE PO SCH ×3 (05:27→21:35)
[2018-04-05 06:28] LABS: ABSOLUTE EOSINOPHILS # (AUTO) 0.3 10^3/uL (0.0-0.6); ABSOLUTE LYMPHOCYTES (AUTO) 1.6 10^3/uL (0.5-4.7); ABSOLUTE MONOCYTES (AUTO) 0.7 10^3/uL (0.1-1.4); ABSOLUTE NEUT (AUTO) 5.7 10^3/uL (1.7-8.2); BASOPHILS % (AUTO) 0.5 % (0-2); HEMATOCRIT 27.5 % (36.0-47.0); HEMOGLOBIN 8.7 g/dL (12.0-15.5); MEAN CORPUSCULAR HGB CONC 31.7 g/dL (32.0-36.0); MEAN CORPUSCULAR VOLUME 76 fl (80-97); MONOCYTES % (AUTO) 8.5 % (3-13); PLATELET COUNT 179 10^3/uL (150-450); RED BLOOD COUNT 3.64 10^6/uL (3.72-5.28); RED CELL DISTRIBUTION WIDTH 18.3 % (11.5-14.0); TOTAL CELLS COUNTED % (AUTO) 100 %; WHITE BLOOD COUNT 8.3 10^3/uL (4.0-10.5)
[2018-04-05 06:50] LABS: ALANINE AMINOTRANSFERASE 26 U/L (9-52); ALBUMIN 3.2 g/dL (3.5-5.0); ALKALINE PHOSPHATASE 165 U/L (38-126); ANION GAP 9 (5-19); ASPARTATE AMINO TRANSFERASE 27 U/L (14-36); BILIRUBIN,DIRECT 0.2 mg/dL (0.0-0.4); BILIRUBIN,TOTAL 0.3 mg/dL (0.2-1.3); BLOOD UREA NITROGEN 20 mg/dL (7-20); CALCIUM 8.4 mg/dL (8.4-10.2); CARBON DIOXIDE 35 mmol/L (22-30); CHLORIDE 102 mmol/L (98-107); GLUCOSE 81 mg/dL (75-110); POTASSIUM 3.8 mmol/L (3.6-5.0); SODIUM 145.6 mmol/L (137-145); TOTAL PROTEIN 6.2 g/dL (6.3-8.2)
--- NOTE | 2018-04-05 07:16 | EKG REPORT ---
SEVERITY:- ABNORMAL ECG - ATRIAL FLUTTER, A-RATE 254 INCOMPLETE RIGHT BUNDLE BRANCH BLOCK PROBABLE INFERIOR INFARCT, AGE INDETERMINATE : Confirmed by: Robert Michel MD 05-Apr-2018 07:14:57
--- NOTE | 2018-04-05 08:07 | XCELERA REPORT ---
[address] [address] Lower Extremity Venous Evaluation Name: STERLING GUAMAN Age: 77 yrs Gender: Female : 1940 Patient Status: Inpatient Patient Location: [address] [place], [place] [address] Study Date: 04/04/2018 02:01 PM Procedure: Color flow and duplex imaging bilaterally of the veins of the lower extremities as well as the Common Femoral veins. Reason For Study: BILATERAL CALF TENDERNESS, POSSIBLE DVT Ordering Physician: GEE STEWART Performed By: Zenia Cuello Right Sided Venous Evaluation Normal vessel filling wall to wall, compression and augmentation as well as Colour flow down to the infrageniculate veins. Left Sided Venous Evaluation Normal vessel filling wall to wall, compression and augmentation as well as Colour flow down to the infrageniculate veins. Interpretation Summary No duplex evidence of DVT or obstruction in the bilateral lower extremities. : GEE STEWART > Trenton Camacho
[2018-04-05] MEDS ORDERED: DILTIAZEM HCL 120 MG CAP.SR.24H PO SCH (10:00)
[2018-04-05] MEDS: DOCUSATE SODIUM 100 MG CAPSULE PO SCH ×2 (10:18→17:43)
[2018-04-05] MEDS: IRON POLYSACCHARIDES COMPLEX 150 MG CAPSULE PO SCH (10:19)
[2018-04-05] MEDS: GABAPENTIN 300 MG CAPSULE PO SCH ×2 (10:19→21:34)
[2018-04-05] MEDS: VENLAFAXINE HCL 75 MG CAP.SR.24H PO SCH (10:19)
[2018-04-05] MEDS: GLIMEPIRIDE 4 MG TABLET PO SCH ×2 (10:19→17:43)
[2018-04-05] MEDS: ASPIRIN 81 MG TABLET, ENT COATED PO SCH (10:19)
[2018-04-05] MEDS ORDERED: DIAZEPAM INJ 10 MG/2 ML DISP.SYRIN IV ONE (11:30)
--- NOTE | 2018-04-05 12:02 | RADIOLOGY REPORT (SQ) ---
EXAM DESCRIPTION: MRI LUMBAR SPINE WITHOUT COMPLETED DATE/TIME: 04/05/2018 11:49 am REASON FOR STUDY: acute weakness to b/l lower extremities D46.4 REFRACTORY ANEMIA, UNSPECIFIED COMPARISON: MRI brain 04/05/2018 TECHNIQUE: Sagittal and Axial imaging includes T1, T2, STIR and gradient echo sequences. Coronal T2/ HASTE imaging. LIMITATIONS: None. FINDINGS: VISUALIZED UPPER ABDOMEN: Limited evaluation. No acute or suspicious findings suggested. SEGMENTATION: No transitional anatomy. The lowest well-developed disc space is labeled L5-S1. ALIGNMENT: Anatomic. VERTEBRAE: Intact. BONE MARROW: Normal. No marrow replacement or reactive changes. DISC SIGNAL: Decreased T2 weighted intervertebral disc signal with disc space loss of height at L4-5 and L5-S1. POSTERIOR ELEMENTS: Generally intact. No pars defect evident. HARDWARE: None in the spine. CORD AND CONUS: Normal in size and signal intensity. Conus at the L1 level. SOFT TISSUES: No aortic aneurysm seen. No bulky retroperitoneal adenopathy or mass. No paraspinal mas s or fluid. T11-12: Mild bilateral facet hypertrophy. No central or foraminal encroachment. T12-L1: Unremarkable. L1-L2: Unremarkable L2-L3: Mild diffuse posterior disc bulge and bony spurring, mild moderate bilateral facet and ligamen t hypertrophy. No significant central or foraminal encroachment. L3-L4: Mild diffuse posterior disc bulge. Bulky bilateral facet and ligament hypertrophy without atnisha tral stenosis. No right foraminal narrowing. Mild left foraminal narrowing without exiting left L3 nerve root impingement. L4-L5: Disc space loss of height with broad diffuse posterior disc bulge and bony spurring, mild to m oderate bilateral facet and ligament hypertrophy. Borderline central canal stenosis. Mild bilateral inferior foraminal narrowing without exiting L4 nerve root impingement. L5-S1: Disc space loss of height with mild diffuse posterior disc bulge and bony spurring. Mild bila teral facet and ligament hypertrophy. No central canal narrowing. Mild right foraminal narrowing, n o left foraminal narrowing. No definite exiting L5 nerve root impingement SACRUM: Visualized upper sacrum intact. OTHER: No other significant findings. IMPRESSION: No high-grade central or foraminal encroachment TECHNICAL DOCUMENTATION: JOB ID: [id number]- All Rights Reserved Reading location - IP/workstation name: [email or web address]
[2018-04-05] MEDS: INSULIN LISPRO 100 UNIT/ML 3 ML VIAL SUBCUT PRN ×2 (17:43→22:43)
--- NOTE | 2018-04-05 20:50 | PDOC PROGRESS REPORT ---
Subjective Progress Note for:: 04/05/18 Subjective:: STERLING GUAMAN is a 77 y.o. F who presented to the ED 04/02/2018 for bilateral lower extremity weakness, tremors, and a recent history of frequent falls at home. PMH includes diabetes, CHF, CAD, PA, HTN, HLD, COPD, CABG, anemia, ZAFAR, obesity, chronic pain, constipation. CT head benign. Hospitalist beater dumper documented that he witnessed tremors in ED, started patient on Keppra. The patient was seen this morning on rounds. She is resting comfortably in bed on nasal cannula. She is awake and alert, understands why she is in the hospital but does not know the month/year. The patient denies chest pain, shortness of breath, dyspnea, nausea, vomiting, or abdominal pain. The patient complains of generalized pain, especially in her lower extremities. She states she is able to ambulate OOB to chair with assistance, but states she experiences constant pain in her lower extremities when doing so. Her legs are tender to palpation however, there is no edema, skin is pink/warm/dry, DP and PT pulses are palpable. The patient was weaned from the cardizem gtt and transitioned to PO cardizem. Reason For Visit: ACUTE ENCEPHALOPATHY, HYPERKALEMIA, TACHYCARDIA Physical Exam Vital Signs: Temp Pulse Resp BP Pulse Ox 98.2 F 83 18 144/49 H 100 04/05/18 19:44 04/05/18 19:44 04/05/18 19:44 04/05/18 19:44 04/05/18 19:44 Intake & Output 04/04/18 04/05/18 04/06/18 06:59 06:59 06:59 Intake Total 442 336 Output Total 600 350 Balance -158 -14 Weight 92.3 kg General appearance: PRESENT: no acute distress, morbidly obese Eye exam: PRESENT: conjunctiva pink, PERRLA Mouth exam: PRESENT: moist Teeth exam: PRESENT: poor dentation Neck exam: PRESENT: full ROM Respiratory exam: PRESENT: clear to auscultation adal, symmetrical, unlabored Cardiovascular exam: PRESENT: +S1, +S2 Pulses: PRESENT: normal radial pulses, +1 pedal pulses bilateral Vascular exam: PRESENT: normal capillary refill GI/Abdominal exam: PRESENT: normal bowel sounds, soft. ABSENT: tenderness Rectal exam: PRESENT: deferred Extremities exam: PRESENT: full ROM Musculoskeletal exam: PRESENT: ambulatory - with assistance, full ROM Neurological exam: PRESENT: alert, awake, oriented to person, oriented to place. ABSENT: oriented to time, oriented to situation Psychiatric exam: PRESENT: appropriate affect Skin exam: PRESENT: dry, intact, warm Results Laboratory Results: 04/05/18 05:22 04/05/18 05:22 04/05/18 04/05/18 05:22 05:22 WBC 8.3 RBC 3.64 L Hgb 8.7 L Hct 27.5 L MCV 76 L MCH 24.0 L MCHC 31.7 L RDW 18.3 H Plt Count 179 Seg Neutrophils % 68.0 Lymphocytes % 19.0 Monocytes % 8.5 Eosinophils % 4.0 Basophils % 0.5 Absolute Neutrophils 5.7 Absolute Lymphocytes 1.6 Absolute Monocytes 0.7 Absolute Eosinophils 0.3 Absolute Basophils 0.0 Sodium 145.6 H Potassium 3.8 Chloride 102 Carbon Dioxide 35 H Anion Gap 9 BUN 20 Creatinine 0.76 Est GFR ( Amer) > 60 Est GFR (Non-Af Amer) > 60 Glucose 81 Calcium 8.4 Total Bilirubin 0.3 AST 27 ALT 26 Alkaline Phosphatase 165 H Total Protein 6.2 L Albumin 3.2 L Impressions: Head CT 04/02/18 00:00 IMPRESSION: No acute intracranial hemorrhage or acute territorial infarct. Mild chronic changes of atrophy and microvascular ischemia. EVIDENCE OF ACUTE STROKE: NO. Abdomen X-Ray 04/03/18 01:11 IMPRESSION: No acute findings. Head MRI 04/04/18 00:00 IMPRESSION: ATROPHY AND CHRONIC MICRO-VASCULAR ISCHEMIC CHANGES. OTHERWISE NORMAL MRI OF THE BRAIN WITHOUT INTRAVENOUS GADOLINIUM CONTRAST. EVIDENCE OF ACUTE STROKE: NO. Lumbar Spine MRI 04/05/18 00:00 IMPRESSION: No high-grade central or foraminal encroachment Status: Imported from PACS Assessment & Plan - Diagnosis (1) Acute encephalopathy Is this a current diagnosis for this admission?: Yes Plan: Unclear etiology. According to the patient's she has been increasingly confused at home over the last several months. Head CT negative. MRI brain demonstrates microvascular changes, no significant pathology (2) Atrial fibrillation and flutter Is this a current diagnosis for this admission?: Yes Plan: Episode of AFIB/AFLUTTER (HR 90-115) It is possible this occurred because the patient was not restarted on her home dose of cardizem. Cardiology was consulted, patient was started on Cardizem gtt, now transitioned to PO Cardizem. Currently rate controlled. Appreciate any further cardiology recommendations (3) Sleep apnea Qualifiers: Sleep apnea type: unspecified type Qualified Code(s): G47.30 - Sleep apnea , unspecified Is this a current diagnosis for this admission?: Yes Plan: Patient endorses history of sleep apnea. CPAP at bedtime. (4) Generalized weakness Is this a current diagnosis for this admission?: Yes Plan: Continue physical therapy. MRI lumbar spine to evaluate for bilateral lower extremity weakness was benign - no lesions, tumors or other pathology Venous and arterial duplex studies to evaluate for lower extremity pain and weakness. Venous Duplex negative Arterial Duplex pending The patient will require placement at acute rehab following discharge from [facility]. Discharge planning aware and assisting with placement to acute rehab (5) Myoclonic jerking Is this a current diagnosis for this admission?: Yes Plan: Resolved. Unclear etiology. Patient's states that the patient was experiencing myoclonic jerking for approx. 1 week prior to admission to [facility] No evidence of these symptoms within 48 hours. MRI Brain negative Consulted [facility], they recommend outpatient follow up since MRI is negative. No need for Keppra. Continue to observe for tremor re-occurrence and/or seizure activity If there is recurrence of seizure-like activity, will need to initiate EEG and re-consult neurology. (6) Diabetes mellitus type 2 Is this a current diagnosis for this admission?: Yes Plan: Patient endorses history of diabetes. Accu-Cheks before meals at bedtime and Humalog sliding scale coverage. (7) Obesity Qualifiers: Obesity type: with alveolar hypoventilation Qualified Code(s): E66.2 - Morbid (severe) obesity with alveolar hypoventilation Is this a current diagnosis for this admission?: Yes Plan: BMI 37.5 qualifies for morbid obesity. Exercise restraint with dietary choices. (8) Leg pain, bilateral Is this a current diagnosis for this admission?: Yes Plan: Patient endorses bilateral lower leg pain, states the patient has a history of diabetic neuropathy Continue home dose Lyrica - Time Time Spent with patient: 15-24 minutes Medications reviewed and adjusted accordingly: Yes Anticipated discharge: Acute Rehab Within: within 48 hours - Inpatient Certification Based on my medical assessment, after consideration of the patient's comorbidities, presenting symptoms, or acuity I expect that the services needed warrant INPATIENT care.: Yes I certify that my determination is in accordance with my understanding of Medicare's requirements for reasonable and necessary INPATIENT services [42 CFR 412.3e].: Yes Medical Necessity: Need for IV Antibiotics - Plan Summary Plan Summary: discharge to acute rehab facility
[2018-04-05] MEDS: DILTIAZEM HCL 180 MG CAPSULE.CR PO SCH (21:34)
[2018-04-06] MEDS: HEPARIN SOD (PORCINE) 5,000 UNIT/ML 1 ML SYRINGE SUBCUT SCH ×3 (05:26→21:09)
[2018-04-06] MEDS: PREGABALIN 75 MG CAPSULE PO SCH ×3 (05:26→21:09)
--- NOTE | 2018-04-06 08:02 | PROGRESS NOTE E ---
Progress Note NAME: STERLING GUAMAN : 1940 AGE: 77Y DATE: 04/05/2018 ROOM: 320 SUBJECTIVE: The patient is more awake and alert today. She had an MRI of the lower extremities/back. She still complains of weakness in her legs. She remains in atrial flutter with ventricular response in the 90s. She denies any chest pain or discomfort. There is no PND or orthopnea. There is no leg edema. There is no ventricular arrhythmia seen on the monitor. There are no TIA or CVA symptoms. OBJECTIVE: GENERAL: On examination, the patient is moderately obese and well groomed, in no acute distress. VITAL SIGNS: She is afebrile with a temperature of 98.2 degrees Fahrenheit, pulse is 96 beats per minute, blood pressure is 143/74, respirations are 16 per minute, O2 saturations are 99% on 2 L nasal cannula. HEENT: Head is atraumatic, normocephalic. Eyes: Pupils are equal, round, regular, reactive to light and accommodation. Extraocular movements are normal. There is no conjunctival pallor. There is no scleral icterus. ENT is negative. NECK: Supple. There is no JVD. Carotids are equal. There is no bruit. There is no lymphadenopathy. There is no goiter. Trachea central. LUNGS: Show diminished air entry, prolonged expiration without any rhonchi, rales or wheezing. On percussion, there is hyperresonance throughout. There is no chest wall tenderness. HEART: S1 and S2 are heard. S1 is of variable intensity. There is no S3 gallop. There is no S4 gallop. There is a systolic murmur in the left sternal border on the apex. There is no rub. ABDOMEN: Soft, obese, nontender. There is no hepatosplenomegaly. Bowel sounds are well heard. There are no tender areas or masses. EXTREMITIES: Femorals are deep. There are no femoral bruits. Leg pulses diminished. There is no pedal edema. There is no DVT or cellulitis. There is no calf tenderness. CENTRAL NERVOUS SYSTEM: The patient is awake and seems to be oriented x3 with no focal deficit. PSYCHIATRIC: The patient's judgment and insight seem to be intact. Her affect is normal. DIAGNOSTIC STUDIES: The patient's EKG shows atrial flutter with a ventricular response of 105 beats per minute, incomplete right bundle branch block pattern. Q waves in lead 3 most likely normal radiation. No evidence of NH. IMAGING STUDIES: The patient's lumbar spine MRI shows no high grade central or foraminal encroachment. LABORATORY DATA: The patient's white count is 8300; hemoglobin is 8.7; hematocrit is 27.5; her MCV is down to 76; and her platelet count is 179,000. The patient's sodium is 145.6, potassium 3.8, chloride is 102, CO2 is 35. The patient's BUN is 20, creatinine 0.76, GFR is greater than 60, glucose is 81, and calcium is 8.4. Her liver function tests are normal except for an elevated alk phos of 165. Her total protein is 6.2, albumin is 3.2. IMPRESSION: 1. ATRIAL FLUTTER, VENTRICULAR RESPONSE STILL SLIGHTLY HIGH. We will increase the patient's Cardizem CD to 180 mg p.o. q. 12 hours from 120 p.o. b.i.d. Also, the patient is not a candidate for long-term anticoagulation. Most likely, the atrial flutter is chronic. 2. ALTERED MENTAL STATUS, MOST LIKELY ENCEPHALOPATHY, HAS RESOLVED. 3. LOWER EXTREMITY WEAKNESS, ? CAUSE. 4. IRON DEFICIENCY ANEMIA, ? ETIOLOGY. 5. CORONARY ARTERY DISEASE. NO ANGINAL SYMPTOMS. EKG DOES NOT SHOW ANY AV CHANGES. 6. MODERATE PULMONARY HYPERTENSION. 7. DIABETES MELLITUS TYPE 2. 8. HYPERTENSION. 9. GERD. 10. COPD. 11. HISTORY OF CHRONIC PAIN. 12. MYOCLONIC JERKS? PATIENT'S KEPPRA HAS BEEN DISCONTINUED. THERE ARE NO FURTHER MYOCLONIC JERKS. 13. HISTORY OF SEIZURES. 14. HISTORY OF FREQUENT FALLS. 15. DEPRESSION. Would continue the patient's . RECOMMENDATION: As mentioned earlier, the patient is off the Cardizem drip. Will increase the patient's Cardizem CD to 180 mg p.o. q. 12 hours. Will continue her antidiabetic medication. Will continue her COPD medications. The patient's COPD is not in any acute exacerbation . For chronic pain, she is on gabapentin. Would continue that. She is also on aspirin 81 mg p.o. daily. For her depression, would continue the patient's . Discussed with the patient. Discussed with the hospitalist taking care of the patient. TIME SPENT: Thirty-five minutes spent on this patient with more than 50% of the time spent on direct patient care. Her medications have been reviewed and her diltiazem dosage has been increased by me. EKG has been reviewed by me. CODE STATUS: The patient is a FULL CODE. Her is the surrogate healthcare decision maker. We will follow with you. DICTATING PHYSICIAN: YOLANDE MCKINNEY M.D. [id number] PHY#: [id number] ID: [id number] JOB#: [id number] ACCT: [id number] cc: >
[2018-04-06] MEDS: VENLAFAXINE HCL 75 MG CAP.SR.24H PO SCH (10:57)
[2018-04-06] MEDS: GLIMEPIRIDE 4 MG TABLET PO SCH ×2 (10:57→18:03)
[2018-04-06] MEDS: IRON POLYSACCHARIDES COMPLEX 150 MG CAPSULE PO SCH (10:57)
[2018-04-06] MEDS: DILTIAZEM HCL 180 MG CAPSULE.CR PO SCH ×2 (10:57→21:09)
[2018-04-06] MEDS: DOCUSATE SODIUM 100 MG CAPSULE PO SCH ×2 (10:57→18:03)
[2018-04-06] MEDS: ASPIRIN 81 MG TABLET, ENT COATED PO SCH (10:57)
[2018-04-06] MEDS: GABAPENTIN 300 MG CAPSULE PO SCH ×2 (10:57→21:09)
[2018-04-06] MEDS: OXYCODONE-ACETAMINOPHEN 5-325 MG TABLET PO PRN ×2 (11:11→20:40)
[2018-04-06] MEDS: INSULIN LISPRO 100 UNIT/ML 3 ML VIAL SUBCUT PRN ×3 (14:08→22:39)
--- NOTE | 2018-04-06 18:54 | PDOC PROGRESS REPORT ---
Subjective Progress Note for:: 04/06/18 Subjective:: STERLING GUAMAN is a 77 y.o. F who presented to the ED 04/02/2018 for bilateral lower extremity weakness, tremors, and a recent history of frequent falls at home. PMH includes diabetes, CHF, CAD, ME, HTN, HLD, COPD, CABG, anemia, ZAFAR, obesity, chronic pain, constipation. CT head benign. Hospitalist sound engineer audio control documented that he witnessed tremors in ED, started patient on Keppra. The patient was seen this morning on rounds just prior to her ECHOcardiogram. She is resting comfortably in bed on nasal cannula. She is awake and alert, understands why she is in the hospital but does not know the month/year. The patient denies chest pain, shortness of breath, dyspnea, nausea, vomiting, or abdominal pain. The patient complains of generalized pain, especially in her lower extremities. Her legs are tender to palpation however, there is no edema, skin is pink/warm/dry, DP and PT pulses are palpable. After discussion with yesterday, he reports the patient always has pain in her legs due in part to diabetic neuropathy. Reason For Visit: ACUTE ENCEPHALOPATHY, HYPERKALEMIA, TACHYCARDIA Physical Exam Vital Signs: Temp Pulse Resp BP Pulse Ox 98.2 F 85 18 128/55 H 100 04/06/18 15:52 04/06/18 15:52 04/06/18 15:52 04/06/18 15:52 04/06/18 15:52 Intake & Output 04/05/18 04/06/18 04/07/18 06:59 06:59 06:59 Intake Total 442 339 355 Output Total 600 625 300 Balance -158 -286 55 Weight 92.3 kg 93.4 kg General appearance: PRESENT: no acute distress, morbidly obese Eye exam: PRESENT: conjunctiva pink, PERRLA Mouth exam: PRESENT: moist Teeth exam: PRESENT: poor dentation Neck exam: PRESENT: full ROM Respiratory exam: PRESENT: clear to auscultation adal, symmetrical, unlabored Cardiovascular exam: PRESENT: +S1, +S2 Pulses: PRESENT: normal radial pulses, normal dorsalis pedis pul Vascular exam: PRESENT: normal capillary refill, pallor GI/Abdominal exam: PRESENT: normal bowel sounds, soft. ABSENT: tenderness Rectal exam: PRESENT: deferred Extremities exam: PRESENT: full ROM, pedal edema, tenderness. ABSENT: joint swelling Musculoskeletal exam: PRESENT: ambulatory - with assistance, full ROM Neurological exam: PRESENT: alert, awake, oriented to person, oriented to place , oriented to time, oriented to situation Psychiatric exam: PRESENT: appropriate affect Skin exam: PRESENT: dry, intact, pallor, warm Results Laboratory Results: 04/05/18 05:22 04/05/18 05:22 Impressions: Head CT 04/02/18 00:00 IMPRESSION: No acute intracranial hemorrhage or acute territorial infarct. Mild chronic changes of atrophy and microvascular ischemia. EVIDENCE OF ACUTE STROKE: NO. Abdomen X-Ray 04/03/18 01:11 IMPRESSION: No acute findings. Head MRI 04/04/18 00:00 IMPRESSION: ATROPHY AND CHRONIC MICRO-VASCULAR ISCHEMIC CHANGES. OTHERWISE NORMAL MRI OF THE BRAIN WITHOUT INTRAVENOUS GADOLINIUM CONTRAST. EVIDENCE OF ACUTE STROKE: NO. Lumbar Spine MRI 04/05/18 00:00 IMPRESSION: No high-grade central or foraminal encroachment Status: Imported from PACS Assessment & Plan - Diagnosis (1) Acute encephalopathy Is this a current diagnosis for this admission?: Yes Plan: Unclear etiology. According to the patient's she has been increasingly confused at home over the last several months. Head CT negative. MRI brain demonstrates microvascular changes, no significant pathology The patient has always been appropriate during assessment, only slightly confused about the date. Dementia or Alzheimer's unlikely No need for medication treatment at this time (2) Atrial fibrillation and flutter Is this a current diagnosis for this admission?: Yes Plan: Episode of AFIB/AFLUTTER (HR 90-115) It is possible this occurred because the patient was not restarted on her home dose of cardizem. Cardiology was consulted, patient was started on Cardizem gtt, now transitioned to PO Cardizem. Currently rate controlled. Will continue new PO regimen post discharge Per Dr. Bhardwaj, the patient is cleared for discharge. (3) Sleep apnea Qualifiers: Sleep apnea type: unspecified type Qualified Code(s): G47.30 - Sleep apnea , unspecified Is this a current diagnosis for this admission?: Yes Plan: Patient endorses history of sleep apnea. CPAP at bedtime. (4) Generalized weakness Is this a current diagnosis for this admission?: Yes Plan: Continue physical therapy. MRI lumbar spine to evaluate for bilateral lower extremity weakness was benign - no lesions, tumors or other pathology Venous and arterial duplex studies to evaluate for lower extremity pain and weakness. Venous Duplex negative Arterial Duplex still pending - contacted Dr Trenton Camacho today The patient will require placement at acute rehab following discharge from [facility]. Discharge planning aware and assisting with placement to acute rehab (5) Myoclonic jerking Is this a current diagnosis for this admission?: Yes Plan: Resolved. Unclear etiology. Patient's states that the patient was experiencing myoclonic jerking for approx. 1 week prior to admission to [facility] No evidence of these symptoms within 48 hours. MRI Brain negative Consulted [facility], they recommend outpatient follow up since MRI is negative. No need for Keppra. Continue to observe for tremor re-occurrence and/or seizure activity If there is recurrence of seizure-like activity, will need to initiate EEG and re-consult neurology. (6) Diabetes mellitus type 2 Is this a current diagnosis for this admission?: Yes Plan: Patient endorses history of diabetes. Accu-Cheks before meals at bedtime and Humalog sliding scale coverage. (7) Obesity Qualifiers: Obesity type: with alveolar hypoventilation Qualified Code(s): E66.2 - Morbid (severe) obesity with alveolar hypoventilation Is this a current diagnosis for this admission?: Yes Plan: BMI 37.5 qualifies for morbid obesity. Exercise restraint with dietary choices. (8) Leg pain, bilateral Is this a current diagnosis for this admission?: Yes Plan: Patient endorses bilateral lower leg pain, states the patient has a history of diabetic neuropathy Continue home medication Lyrica, plan to increase dose from 75 to 100mg - Time Time Spent with patient: 15-24 minutes Medications reviewed and adjusted accordingly: Yes Anticipated discharge: Acute Rehab Within: within 24 hours - Inpatient Certification Based on my medical assessment, after consideration of the patient's comorbidities, presenting symptoms, or acuity I expect that the services needed warrant INPATIENT care.: Yes I certify that my determination is in accordance with my understanding of Medicare's requirements for reasonable and necessary INPATIENT services [42 CFR 412.3e].: Yes - Plan Summary Plan Summary: discharge to acute rehab
--- NOTE | 2018-04-06 20:34 | XCELERA REPORT ---
[address] [address] Transthoracic Echocardiogram Report Name: STERLING GUAMAN Age: 77 yrs Gender: Female : 1940 Patient Status: Inpatient Patient Location: [facility]^A Study Date: 04/06/2018 09:27 AM Height: 61 in Weight: 203 lb BSA: 1.9 m2 Procedure: A two-dimensional transthoracic echocardiogram with color flow and Doppler was performed. Study Quality: Technically suboptimal. The study was technically difficult with many images being suboptimal in quality. Reason For Study: aFLUTTER / cad / pULMONARY hYPERTENSION History: aFLUTTER / cad / pULMONARY hYPERTENSION. Ordering Physician: KELLY BHARDWAJ Performed By: Eirc Reyes Interpretation Summary Probably normal LV size ,probably no LVH.Probably no wall motion abnormality.LVEF normal and > than 60%. Doppler measurements suggest normal left ventricular diastolic function The left atrium is mildly dilated. There is no evidence of mitral valve prolapse. There is no mitral valve stenosis. There is a mild amount of mitral regurgitation There is no aortic valve stenosis There is no LVOT obstruction. No aortic regurgitation is present. There is no tricuspid stenosis. There is a mild amount of tricuspid regurgitation Moderate to severe pulmonary hypertension.RVSP is 59 to 64 mm of Hg , with RA mean of 10 to 15. There is no pericardial effusion. MMode/2D Measurements & Calculations RVDd: 3.6 cm LVIDd: 5.1 cm FS: 36.0 % Ao root diam: 2.6 cm IVSd: 1.0 cm LVIDs: 3.3 cm EDV(Teich): 126.1 ml LVPWd: 0.88 cmESV(Teich): 43.9 ml Ao root area: 5.3 cm2 EF(Teich): 65.2 % LVOT diam: 1.8 cm LVOT area: 2.4 cm2 Doppler Measurements & Calculations MV E max ronnell: MV dec slope: Ao V2 max: LV V1 max P.3 cm/sec 851.9 cm/sec2 142.0 cm/sec 1.6 mmHg MV A max ronnell: MV dec time: Ao max PG: LV V1 max: 54.1 cm/sec 0.14 sec 8.1 mmHg 64.1 cm/sec MV E/A: 2.2 TIFF(V,D): 1.1 cm2 PA V2 max: TR max ronnell: 122.8 cm/sec 326.4 cm/sec PA max P.0 mmHg TR max P.8 mmHg Left Ventricle Probably normal LV size ,probably no LVH.Probably no wall motion abnormality.LVEF normal and > than 60%. Doppler measurements suggest normal left ventricular diastolic function. Right Ventricle The right ventricle is not well visualized secondary to technical limitations. Atria Right atrium not well visualized secondary to technical limitations. The left atrium is mildly dilated. Mitral Valve There is no evidence of mitral valve prolapse. There is no vegetation seen on the mitral valve. There is no mitral valve stenosis. There is a mild amount of mitral regurgitation. Aortic Valve There is no aortic valve stenosis. There is no LVOT obstruction. No aortic regurgitation is present. Tricuspid Valve There is no tricuspid stenosis. There is a mild amount of tricuspid regurgitation. Moderate to severe pulmonary hypertension.RVSP is 59 to 64 mm of Hg , with RA mean of 10 to 15. Pulmonic Valve There is no pulmonic valvular stenosis. There is no pulmonic valvular regurgitation. Great Vessels The aortic root is not well visualized. The inferior vena cava appeared normal and decreased < 50% with respiration (RAP 10-15 mmHg). Effusions There is no pericardial effusion. : KELLY BHARDWAJ > Kelly Bhardwaj
--- NOTE | 2018-04-07 01:00 | PROGRESS NOTE E ---
Progress Note NAME: STERLING GUAMAN : 1940 AGE: 77Y DATE: 04/06/2018 ROOM: 320 SUBJECTIVE: Note, the patient continues to be *------*. Her heart rate is better controlled. She is off IV Cardizem. She is on Cardizem CD 180 mg p.o. every 12 hours. Note, in view of the patient contraindications, she is not on chronic anticoagulation therapy. The patient complains of bilateral leg pain. OBJECTIVE: GENERAL: On examination, the patient is moderately obese, but well groomed, at present in no acute distress. VITAL SIGNS: She is afebrile with a temperature of 98 degrees Fahrenheit, pulse is 79 beats per minute, blood pressure 139/53, respirations are 14 per minute, O2 saturations are 98% on 2 L nasal cannula. HEENT: Head is atraumatic, normocephalic. Eyes: Pupils are equal, round, regular, reactive to light and accommodation. Extraocular movements are normal. There is no conjunctival pallor. There is no scleral icterus. ENT is negative. NECK: Supple. There is no JVD. Carotids are equal. There is no bruit. There is no lymphadenopathy. There is no goiter. Trachea central. LUNGS: Diminished air entry, prolonged expiration without any rhonchi, rales or wheezing. On percussion, there is hyperresonance throughout. There is no chest wall tenderness. HEART: S1 and S2 are heard. S1 is of variable intensity. There is no S3 gallop. There is no S4 gallop. There is a systolic murmur in the left sternal border and in the apex. There is no rub. ABDOMEN: Soft, obese, nontender. There is no hepatosplenomegaly. Bowel sounds are well heard. There are no tender areas or masses. EXTREMITIES: Femorals are deep. There are no femoral bruits. Leg pulses diminished. There is no pedal edema. There is no DVT or cellulitis. There is no calf tenderness. CENTRAL NERVOUS SYSTEM: The patient is conscious, awake and oriented x3 at present with no focal deficit. PSYCHIATRIC: The patient's judgment and insight are intact. Her affect is normal. DIAGNOSTIC STUDIES: The patient's blood sugar earlier this morning was 107 and prior was 257. The patient's echocardiogram is a suboptimal study, probably normal LV size, probably no LVH, probably no wall motion abnormality. LV ejection fraction normal at greater than 60%. There is normal left ventricular diastolic function. The left atrium is mildly dilated. There is mild mitral regurgitation. There is no mitral valve prolapse or mitral stenosis. There is no aortic valve stenosis. There is no aortic regurgitation. There is mild to moderate tricuspid regurgitation. The right ventricle systolic pressure is moderate to severely elevated and is 59 mmHg to 64 mmHg. The patient has moderate to severe pulmonary hypertension. IMPRESSION: 1. ATRIAL FLUTTER. Ventricular response much better controlled on Cardizem CD 180 mg p.o. q.12 hours. 2. ALTERED MENTAL STATUS. Resolved, most likely secondary to encephalopathy. 3. LOWER EXTREMITY WEAKNESS. Question cause. 4. IRON DEFICIENCY ANEMIA. Question etiology. 5. CORONARY ARTERY DISEASE. No anginal symptoms. 6. MODERATE TO SEVERE PULMONARY HYPERTENSION. 7. DIABETES MELLITUS TYPE 2. 8. HYPERTENSION. 9. GASTROESOPHAGEAL REFLUX DISEASE. 10. CHRONIC OBSTRUCTIVE PULMONARY DISEASE. 11. HISTORY OF CHRONIC PAIN. 12. MYOCLONIC JERKS. At present no further myoclonic jerks. 13. HISTORY OF SEIZURES. 14. HISTORY OF FREQUENT FALLS. 15. DEPRESSION. RECOMMENDATIONS: Continue Cardizem at 180 mg q.12 hours. The patient is not a candidate for remote computer terminal operator anticoagulation therapy. Continue anti-COPD medications. Echo discussed with the patient. Note, medications have been reviewed and discussed with the attending physician on the case. Discussed the case with the attending physician and other care providers on the case. Note, medical decision-making is of moderate to high complexity in view of the patient's continued chronic atrial flutter and the patient having contraindication to chronic anticoagulation therapy, and the patient having moderate to severe pulmonary hypertension. In view of this, would also recommend that the patient as an outpatient can have a sleep study done if this has not been done to rule out obstructive sleep apnea. TIME SPENT: Note, 35 minutes spent on this patient with more than 50% of the time spent on direct patient care. Cardiac status appears to be stable. We will sign off. Thanking you. DICTATING PHYSICIAN: YOLANDE MCKINNEY M.D. [id number] PHY#: [id number] ID: [id number] JOB#: [id number] ACCT: [id number] cc: >
[2018-04-07] MEDS: OXYCODONE-ACETAMINOPHEN 5-325 MG TABLET PO PRN ×2 (02:46→12:47)
[2018-04-07] MEDS: HEPARIN SOD (PORCINE) 5,000 UNIT/ML 1 ML SYRINGE SUBCUT SCH ×2 (05:08→13:29)
[2018-04-07] MEDS: PREGABALIN 75 MG CAPSULE PO SCH ×2 (05:08→13:29)
[2018-04-07] MEDS: INSULIN LISPRO 100 UNIT/ML 3 ML VIAL SUBCUT PRN ×2 (07:46→12:22)
--- NOTE | 2018-04-07 08:12 | XCELERA REPORT ---
[address] [address] Lower Extremity Arterial Evaluation Name: STERLING GUAMAN Age: 77 yrs Gender: Female : 1940 Patient Status: Inpatient Patient Location: [address] [place], [place] [address]A Study Date: 04/05/2018 01:43 PM Procedure: A color flow and duplex scan of the lower extremity arteries was performed bilaterally with velocity and waveform anaylsis. Reason For Study: ACUTE BILATERAL LOWER EXTREM WEAKNESS PAIN Ordering Physician: GEE STEWART Performed By: Zenia Cuello Measurements and Calculations Right Left LIFE TEACHER PSV 139.9 206.5 cm/sec Prox PFA PSV -75.5 -62.2 cm/sec Prox SFA PSV 151.6 127.6 cm/sec Mid SFA PSV -127.1 -136.2 cm/sec Dist SFA PSV -194.2 -112.4 cm/sec Prox Pop A PSV 93.2 cm/sec Dist Pop A PSV -126.5 cm/sec Dist LAWRENCE PSV 77.4 21.9 cm/sec Dist PARTITION ASSEMBLY MACHINE OPERATOR PSV 127.1 21.4 cm/sec Rudi Pedis PSV 49.7 16.2 cm/sec Right Side Arterial Evaluation Normal velocity and triphasic waveforms noted from the Common Femoral artery to the Posterior Tibial artery. Biphasic in the deep Femoral and Anterior Tibial. 0-19% stenosis in the deep Femoral and Anterior Tibial. Ankle Brachial index was not done due to pain. Left Side Arterial Evaluation Normal velocity and triphasic waveforms noted from the Common Femoral artery to the Posterior Tibial artery. Biphasic in the Deep Femoral and Anterior Tibial. 20-49 % stenosis in the Deep Femoral and Anterior Tibial. Ankle Brachial index was not done due to pain. Interpretation Summary Mild hemodynamically significant lesions in the right lower extremity only, on duplex imaging, at rest. Moderate hemodynamically significant lesions in the left lower extremity only, on duplex imaging, at rest. : GEE STEWART > Trenton Camacho
[2018-04-07] MEDS: VENLAFAXINE HCL 75 MG CAP.SR.24H PO SCH (10:08)
[2018-04-07] MEDS: IRON POLYSACCHARIDES COMPLEX 150 MG CAPSULE PO SCH (10:09)
[2018-04-07] MEDS: DILTIAZEM HCL 180 MG CAPSULE.CR PO SCH (10:14)
[2018-04-07] MEDS: ASPIRIN 81 MG TABLET, ENT COATED PO SCH (10:14)
[2018-04-07] MEDS: DOCUSATE SODIUM 100 MG CAPSULE PO SCH (10:14)
[2018-04-07] MEDS: GLIMEPIRIDE 4 MG TABLET PO SCH (10:14)
[2018-04-07] MEDS: GABAPENTIN 300 MG CAPSULE PO SCH (10:14)
--- NOTE | 2018-04-07 11:20 | PDOC TRANSFER SUMMARY ---
General Admission Date/PCP: 04/04/18 16:04 HIMA LIU NP Admission Date: 04/04/18 Transfer Date: 04/07/18 Resuscitation Status: Full Code - Transfer Diagnosis (1) Acute encephalopathy Is this a current diagnosis for this admission?: Yes (2) Atrial fibrillation and flutter Is this a current diagnosis for this admission?: Yes (3) Sleep apnea Is this a current diagnosis for this admission?: Yes (4) Generalized weakness Is this a current diagnosis for this admission?: Yes (5) Myoclonic jerking Is this a current diagnosis for this admission?: Yes (6) Diabetes mellitus type 2 Is this a current diagnosis for this admission?: Yes (7) Obesity Is this a current diagnosis for this admission?: Yes (8) Leg pain, bilateral Is this a current diagnosis for this admission?: Yes - Transfer Medications Home Medications: Atorvastatin Calcium [Lipitor 40 mg Tablet] 40 mg PO QHS 04/03/18 Carvedilol [Coreg 6.25 mg Tablet] 6.25 mg PO Q12 04/03/18 Diltiazem HCl [Cardizem Cd 240 mg Capsule.cr] 240 mg PO DAILY 04/03/18 Docusate Sodium [Colace 100 mg Capsule] 100 mg PO BID 04/03/18 Enoxaparin Sodium [Lovenox Inj 100 mg/1 ml Disp.syrin] 90 mg SQ BID 04/03/18 Ferrous Sulfate [Feosol 325 mg Tablet] 325 mg PO DAILY 04/03/18 Furosemide [Lasix 40 mg Tablet] 40 mg PO QAM 04/03/18 Glimepiride [Amaryl 4 mg Tablet] 4 mg PO BID 04/03/18 Hydrocodone/Acetaminophen [[place] 5-325 mg Tablet] 1 tab PO Q4HP PRN 04/03/18 Insulin Glargine,Hum.rec.anlog [Toujeo Solostar] 30 units SQ QAM 04/03/18 Insulin Glargine,Hum.rec.anlog [Toujeo Solostar] 74 units SQ QPM 04/03/18 Lisinopril [Zestril] 10 mg PO DAILY 04/03/18 Metformin HCl [Glucophage 500 mg Tablet] 500 mg PO BIDBS 04/03/18 Omeprazole 40 mg PO BIDBS 04/03/18 Pregabalin [Lyrica] 150 mg PO Q8 04/03/18 Sertraline HCl [Zoloft 50 mg Tablet] 50 mg PO DAILY 04/03/18 Tramadol HCl [Ultram 50 mg Tablet] 50 mg PO TIDP PRN 04/03/18 Transfer Medications: Current Medications Acetaminophen (Tylenol 325 Mg Tablet) 650 mg PO Q4HP PRN PRN Reason: FOR PAIN OR TEMP Stop: 05/02/18 22:31 Last Admin: 04/04/18 02:41 Dose: 650 mg Al Hydrox/Mg Hydrox/Simethicone (Maalox Plus Susp 30 Udcup) 30 ml PO Q6HP PRN PRN Reason: HEARTBURN Stop: 05/02/18 22:31 Albuterol/Ipratropium (Duoneb 3 Ml Ampul) 3 ml NEB [id number] PRN PRN Reason: SHORTNESS OF BREATH Stop: 05/02/18 22:31 Aspirin (Ecotrin 81 Mg Ec Tablet) 81 mg PO DAILY SINA Stop: 05/03/18 09:59 Last Admin: 04/07/18 10:14 Dose: 81 mg Dextrose (Dextrose Inj 50% Syringe (25 Gm/50 Ml)) 12.5 gm IV PRN PRN; Protocol PRN Reason: FOR BG 50-69 IN ALERT PATIENT Stop: 05/03/18 06:42 Dextrose (Dextrose Inj 50% Syringe (25 Gm/50 Ml)) 25 gm IV PRN PRN PRN Reason: Protocol Stop: 05/03/18 06:42 Diltiazem HCl (Cardizem Cd 180 Mg Capsule) 180 mg PO Q12 SINA Stop: 05/05/18 21:59 Last Admin: 04/07/18 10:14 Dose: 180 mg Docusate Sodium (Colace 100 Mg Capsule) 100 mg PO BID SINA Stop: 05/03/18 09:59 Last Admin: 04/07/18 10:14 Dose: 100 mg Gabapentin (Neurontin 300 Mg Capsule) 300 mg PO Q12 SINA Stop: 05/03/18 09:59 Last Admin: 04/07/18 10:14 Dose: 300 mg Glimepiride (Amaryl 4 Mg Tablet) 4 mg PO BID SINA Stop: 05/03/18 09:59 Last Admin: 04/07/18 10:14 Dose: 4 mg Glucagon (Glucagen Inj 1 Mg Vial) 1 mg IM PRN PRN; Protocol PRN Reason: EVALUATE FOR BG < 70 Stop: 05/03/18 06:42 Glucose (Glutose 40% Gel 15 Gm Tube) 15 gm PO PRN PRN; Protocol PRN Reason: FOR BG 50-69 IN ALERT PATIENT Stop: 05/03/18 06:42 Glucose (Glutose 40% Gel 15 Gm Tube) 30 gm PO PRN PRN; Protocol PRN Reason: FOR BG < 50 IN ALERT PATIENT Stop: 05/03/18 06:42 Heparin Sodium (Porcine) (Heparin Inj 5,000 Units/Ml 1 Ml Syringe) 5,000 unit SUBCUT Q8 SINA Stop: 05/03/18 05:59 Last Admin: 04/07/18 05:08 Dose: 5,000 unit Insulin Human Lispro (Humalog Insulin 100 Unit/1 Ml 3 Ml Vial) 0 - 12 unit SUBCUT ACHSP PRN PRN Reason: Protocol Stop: 05/03/18 06:42 Last Admin: 04/07/18 07:46 Dose: 2 unit Oxycodone/Acetaminophen (Percocet 5-325 Mg Tablet) 1 tab PO Q4HP PRN PRN Reason: PAIN SCALE OF 3 Stop: 04/10/18 08:59 Last Admin: 04/07/18 02:46 Dose: 1 tab Polysaccharide Iron Complex (Nu-Iron 150 Capsule) 150 mg PO DAILY SINA Stop: 05/03/18 09:59 Last Admin: 04/07/18 10:09 Dose: 150 mg Pregabalin (Lyrica 75 Mg Capsule) 150 mg PO Q8 SINA Stop: 05/04/18 21:59 Last Admin: 04/07/18 05:08 Dose: 150 mg Senna/Docusate Sodium (Senna Plus Tablet) 1 each PO BIDP PRN PRN Reason: UNRESOLVED CONSTIPATION Stop: 05/03/18 09:24 Venlafaxine HCl (Effexor Xr 75 Mg Cap.Sr) 75 mg PO DAILY [facility] Stop: 05/03/18 09:59 Last Admin: 04/07/18 10:08 Dose: 75 mg - Allergies Allergies/Adverse Reactions: iodine [Iodine] Allergy (Verified 03/24/18 15:53) nortriptyline [Nortriptyline] Allergy (Verified 03/24/18 15:53) Penicillins Allergy (Verified 03/24/18 15:53) Hospital Course Hospital Course: STERLING GUAMAN is a 77 year old female with a PMH of chronic pain, morbid obesity, obstructive sleep apnea, diabetes, anemia and chronic constipation. She presents with 72 hours of constipation, 1 week of generalized weakness and falls without injury. Additionally, the patient and her reports she has had trouble with tremors for the last week. Her frequent falls, weakness and tremors are what prompted her to seek evaluation in the emergency room where she is found to have uncontrolled hypertension, tachycardia, mild myoclonic jerking. She is a poor historian but denies chest pain, shortness of breath, headache, fever or dysuria. Patient admits to missing several medications recently. The patient experienced an episode of AFIB/AFLUTTER (HR 90-120) during the first 24hrs of her hospitalization. Cardiology consulted. It is possible this occurred because the patient was not restarted on her home dose of cardizem. Patient was started on Cardizem gtt, then transitioned to PO Cardizem. The dosing and schedule was slightly changed from her home regimen. ECHOcardiogram done, results were normal: no valvular disease, LVEF > 60%, no evidence of LVH, systolic or diastolic dysfunction. Per [employer], Dr. Bhardwaj, the patient is cleared for discharge. According to the patient's she had been increasingly confused at home over the last several months. Head CT negative. MRI brain demonstrates microvascular changes, no significant pathology. Unclear etiology regarding her confusion, but of note, the patient has always been appropriate during assessment, only slightly confused about the date. She is always cooperative with staff and able to follow directions. Dementia or Alzheimer's unlikely, no need for medication treatment at this time. Her myoclonic jerking spontaneously resolved. MRI Brain negative. Consulted [facility], they recommended outpatient follow up since MRI is negative. No need for Keppra. Continue to observe for tremor re-occurrence and/or seizure activity. Her generalized weakness is likely secondary to her overall poor health. The patient is retired , stays at home and is not physically active. Her debility is partially related the leg pain she experiences secondary to diabetic neuropathy. Increased home dose of Gabapentin. MRI lumbar spine to evaluate for bilateral lower extremity weakness was benign - no lesions, tumors or other pathology. Venous and arterial duplex studies were done to evaluate for lower extremity pain and weakness. Venous duplex negative, arterial duplex shows moderately hemodynamically significant lesions in the LLE and mild hemodynamically significant lesions in the RLE. The patient is not a candidate for anticoagulation due to her frequent falls. As a result of her debility, weakness , and history of frequent falls, the patient is not safe to discharge home. She is being sent to acute rehab for aggressive PT/OT to help her regain strength and balance. Physical Exam Vital Signs: Temp Pulse Resp BP Pulse Ox 97.2 F 67 18 130/65 H 100 04/07/18 07:32 04/07/18 07:32 04/07/18 07:32 04/07/18 07:32 04/07/18 07:32 Intake & Output 04/06/18 04/07/18 04/08/18 06:59 06:59 06:59 Intake Total 339 358 Output Total 625 475 Balance -286 -117 Weight 93.4 kg 94.4 kg Results Laboratory Results: 04/05/18 05:22 04/05/18 05:22 Impressions: Head CT 04/02/18 00:00 IMPRESSION: No acute intracranial hemorrhage or acute territorial infarct. Mild chronic changes of atrophy and microvascular ischemia. EVIDENCE OF ACUTE STROKE: NO. Abdomen X-Ray 04/03/18 01:11 IMPRESSION: No acute findings. Head MRI 04/04/18 00:00 IMPRESSION: ATROPHY AND CHRONIC MICRO-VASCULAR ISCHEMIC CHANGES. OTHERWISE NORMAL MRI OF THE BRAIN WITHOUT INTRAVENOUS GADOLINIUM CONTRAST. EVIDENCE OF ACUTE STROKE: NO. Lumbar Spine MRI 04/05/18 00:00 IMPRESSION: No high-grade central or foraminal encroachment Status: Imported from PACS Plan Discharge Plan: discharge to acute rehab Time Spent: Less than 30 Minutes
[2018-04-07 12:19] VITALS: BP 134/50
== END 2018-04-07 15:54 | DRG 640 ==
LOC: ER 13:55 → INTOOBSV 23:13 → EH 23:13 → 3W 04-03 01:00 → OBSVTOIN 04-04 16:04
PROVIDERS: ADMIT Internal Medicine; ATTEND Internal Medicine
DX: E87.5 Hyperkalemia (principal); G93.40 Encephalopathy, unspecified; E66.2 Morbid (severe) obesity with alveolar hypoventilation; I48.92 Unspecified atrial flutter; R00.0 Tachycardia, unspecified; G25.3 Myoclonus; F17.200 Nicotine dependence, unspecified, uncomplicated; K59.09 Other constipation; G89.29 Other chronic pain; I11.0 Hypertensive heart disease with heart failure; I50.9 Heart failure, unspecified; I25.10 Atherosclerotic heart disease of native coronary artery without angina pectoris; Z68.39 Body mass index [BMI] 39.0-39.9, adult; E87.2 Acidosis; K44.9 Diaphragmatic hernia without obstruction or gangrene; Z90.49 Acquired absence of other specified parts of digestive tract; I87.8 Other specified disorders of veins; I48.91 Unspecified atrial fibrillation; Z91.81 History of falling; D50.9 Iron deficiency anemia, unspecified; I27.20 Pulmonary hypertension, unspecified; K21.9 Gastro-esophageal reflux disease without esophagitis; F32.9 Major depressive disorder, single episode, unspecified; J44.9 Chronic obstructive pulmonary disease, unspecified; Z79.899 Other long term (current) drug therapy; E11.40 Type 2 diabetes mellitus with diabetic neuropathy, unspecified; I07.1 Rheumatic tricuspid insufficiency; Z95.1 Presence of aortocoronary bypass graft; Z79.4 Long term (current) use of insulin; I25.2 Old myocardial infarction; Z88.0 Allergy status to penicillin; Z88.8 Allergy status to other drugs, medicaments and biological substances
CPT/HCPCS: 36415; 51702; 70450; 70551; 71045; 72148; 74019; 80048; 80053; 80307; 81001; 82550; 82553; 82607; 82728; 82746; 82962; 83036; 83540; 83550; 83735; 84443; 84484; 85025; 85045; 85652; 93005; 93010; 93306; 93925; 93970; 94660; 96361; 96374; 96375; 99285; G0378; G8978-GP; G8979-GP; J1644; J1815; J1940; J2060; J2270; J3360; J3490; J7030